=== PATIENT | male | born 1935 | race Caucasian/White ===

== ENCOUNTER 2017-06-26 12:09 | Inpatient (IN) | payer OTHER, BC ==
[2017-06-26 12:46] VITALS: BMI 32.5
--- NOTE | 2017-06-26 13:46 | PDOC ---
History of Present Illness - General History Source: Family Exam Limitations: Other - History of Present Illness Initial Comments: 06/26/17 16:08 The patient is a 81 year old male, with no significant past medical history, who presents to the emergency department with changes in mental status since this morning. As per , the patient is typically up to date with the news, and is alert and oriented to person, place, and time at baseline. However, reports the patient was unable to recognize in the household or who the president was since this morning. denies patient has had any recent head trauma, headache, LOC, changes in vision, dizziness, or lightheadedness. has not noted any recent fever or cough. Patient's history is limited due to clinical condition. Allergies: NKDA Past Surgical History: None reported. Social History: Non smoker. No ETOH or recreational drug use. PCP: Dr. Graf <Nataly Liu - Last Filed: 06/26/17 17:59> <Ibeth Anthony - Last Filed: 06/28/17 12:11> - General Chief Complaint: Altered Mental Status Stated Complaint: ALTERED MENTAL STATUS Time Seen by Provider: 06/26/17 12:29 Past History <Nataly Liu - Last Filed: 06/26/17 17:59> - Past Medical History COPD: No Other medical history: Hx bloods clot in legs as per - Suicide/Smoking/Psychosocial Hx Smoking History: Never smoked Have you smoked in the past 12 months: No Information on smoking cessation initiated: No Hx Alcohol Use: No Drug/Substance Use Hx: No Substance Use Type: None <Ibeth Anthony - Last Filed: 06/28/17 12:11> - Past Medical History Allergies/Adverse Reactions: Allergies Allergy/AdvReac Type Severity Reaction Status Date / Time No Known Allergies Allergy Verified 06/26/17 14:42 Home Medications: Ambulatory Orders NK [No Known Home Medication] 06/26/17 Review of Systems - Review of Systems Able to Perform ROS?: Yes Comments:: 06/26/17 17:31 GENERAL/CONSTITUTIONAL: No fever or chills. No weakness. HEAD, EYES, EARS, NOSE AND THROAT: No change in vision. No ear pain or discharge. No sore throat. CARDIOVASCULAR: No chest pain or shortness of breath. RESPIRATORY: No cough, wheezing, or hemoptysis. GASTROINTESTINAL: No nausea, vomiting, diarrhea or constipation. GENITOURINARY: No dysuria, frequency, or change in urination. MUSCULOSKELETAL: No joint or muscle swelling or pain. No neck or back pain. SKIN: No rash NEUROLOGIC: Yes altered mental status. No headache, vertigo, loss of consciousness, or change in strength/sensation. ENDOCRINE: No increased thirst. No abnormal weight change. HEMATOLOGIC/LYMPHATIC: No anemia, easy bleeding, or history of blood clots. ALLERGIC/IMMUNOLOGIC: No hives or skin allergy. <Nataly Liu - Last Filed: 06/26/17 17:59> *Physical Exam - Vital Signs Last Vital Signs Temp Pulse Resp BP Pulse Ox 100.3 F H 90 18 150/90 98 06/26/17 14:51 06/26/17 14:51 06/26/17 14:51 06/26/17 14:51 06/26/17 14:51 - Physical Exam Comments: 06/26/17 17:33 GENERAL: Awake, confused, febrile, in no acute distress HEAD: No signs of trauma EYES: PERRLA, EOMI, sclera anicteric, conjunctiva clear ENT: Auricles normal inspection, hearing grossly normal, nares patent, oropharynx clear without exudates. Moist mucosa NECK: Normal ROM, supple, no lymphadenopathy, JVD, or masses LUNGS: Breath sounds equal, clear to auscultation bilaterally. No wheezes, and no crackles HEART: Regular rate and rhythm, normal S1 and S2, no murmurs, rubs or gallops ABDOMEN: Soft, nontender, normoactive bowel sounds. No guarding, no rebound. No masses EXTREMITIES: Normal range of motion, no edema. No clubbing or cyanosis. No cords, erythema, or tenderness NEUROLOGICAL: Cranial nerves II through XII grossly intact. SKIN: Warm, Dry, normal turgor, no rashes or lesions noted. <NoeEmelynlidia - Last Filed: 06/26/17 17:59> - Vital Signs Last Vital Signs Temp Pulse Resp BP Pulse Ox 98.6 F 63 15 153/96 96 06/26/17 12:15 06/26/17 12:15 06/26/17 12:15 06/26/17 12:15 06/26/17 12:15 <Ibeth Anthony - Last Filed: 06/28/17 12:11> Procedures - Lumbar Puncture Indication: Meningitis, AMS CT Scan: Yes Betadine Prep: Yes Position: Right lateral decubitus Site: L4-L51 Local Anesthesia: 1% Lidocaine with epi Volume(ml): 2 Lumbar Puncture Kit: Adult Needle Size(gauge): 20 Traumatic Tap: No Tubes Obtained: 4 Clear Fluid: Yes Complications: No <Ibeth Anthony - Last Filed: 06/28/17 12:11> ED Treatment Course - LABORATORY CBC & Chemistry Diagram: 06/26/17 15:35 06/26/17 16:03 - ADDITIONAL ORDERS Additional order review: Laboratory Results 06/26/17 12:34 POC Glucometer [id number] 06/26/17 06/26/17 15:35 12:34 RBC 4.39 MCV 88.4 MCHC 34.2 RDW 14.6 MPV 8.4 Neutrophils % 86.4 H Lymphocytes % 6.2 L Monocytes % 7.3 Eosinophils % 0.0 Basophils % 0.1 POC Glucometer [id number] - RADIOLOGY Radiograph Interpretation: 06/26/17 16:11 EXAM: Head CT INTERPRETED BY: Dr. Wiseman REVIEWED BY: Dr. Anthony IMPRESSION: No intracranial hemorrhage is seen. There is no discrete infarct within the limitations of CT. Mild to moderate periventricular white matter microvascular ischemic gliosis is noted. There is no definite extra-axial fluid collection. Involutional changes are seen with mild ventricular dilatation. A 0.5 cm calcification is noted along the right frontal convexity probably representing a calcified meningioma. No calvarial defect is seen. SUMMARY: No CT evidence of acute intracranial pathology. Mild to moderate periventricular chronic microvascular ischemic changes. EXAM: CXR INTERPRETED BY: Dr. Walsh REVIEWED BY: Dr. Anthony IMPRESSION: Cardiomegaly, no acute disease. <Nataly Liu - Last Filed: 06/26/17 17:59> - LABORATORY CBC & Chemistry Diagram: 06/28/17 05:55 06/28/17 05:55 - ADDITIONAL ORDERS Additional order review: Laboratory Results 06/26/17 12:34 POC Glucometer [id number] 06/26/17 12:34 POC Glucometer [id number] <Ibeth Anthony - Last Filed: 06/28/17 12:11> Medical Decision Making - Medical Decision Making 06/26/17 19:06 Called by hospitalist. Per our initial discussion plan was to not obtain LP as no meningitic signs, plus he had +CK and elevated trop. However, we discussed again and they requested LP. I will obtain consent from , as patient is altered, unable. 06/26/17 19:57 CSF successfully obtained. Patient tolerated procedure well. Labs pending. <Ibeth Anthony - Last Filed: 06/28/17 12:11> *DC/Admit/Observation/Transfer - Attestations Scribe Attestion: 06/26/17 16:12 Documentation prepared by Nataly Liu, acting as medical assembly for Ibeth Anthony MD. <Nataly Liu - Last Filed: 06/26/17 17:59> - Discharge Dispostion Admit: Yes <Ibeth Anthony - Last Filed: 06/28/17 12:11> Diagnosis at time of Disposition: Altered mental status Qualifiers: Altered mental status type: delirium Qualified Code(s): R41.0 - Disorientation , unspecified Fever Qualifiers: Fever type: unspecified Qualified Code(s): R50.9 - Fever, unspecified Rhabdomyolysis Qualifiers: Rhabdomyolysis type: non-traumatic Qualified Code(s): M62.82 - Rhabdomyolysis - Discharge Dispostion Condition at time of disposition: Stable
--- NOTE | 2017-06-26 15:46 | EKG ---
Test Reason : Blood Pressure : / mmHG Vent. Rate : 092 BPM Atrial Rate : 092 BPM P-R Int : 252 ms QRS Dur : 150 ms QT Int : 374 ms P-R-T Axes : 050 -81 -04 degrees QTc Int : 462 ms SINUS RHYTHM WITH 1ST DEGREE A-V BLOCK LEFT AXIS DEVIATION RIGHT BUNDLE BRANCH BLOCK ABNORMAL ECG NO PREVIOUS ECGS AVAILABLE Confirmed by KAYLAN GARCIA MD ([id number]) on 06/26/2017 3:45:41 PM Referred By: Confirmed By:KAYLAN GARCIA MD
[2017-06-26 16:00] LABS: BASO % 0.1 % (0-2.0); HEMATOCRIT 38.8 % (35.4-49); HEMOGLOBIN 13.2 GM/dL (11.7-16.9); LYMPH % 6.2 % (8-40); MCH 30.2 pg (25.7-33.7); MCHC 34.2 g/dl (32.0-35.9); MEAN CELL VOLUME 88.4 fl (80-96); MEAN PLT VOLUME 8.4 fl (7.5-11.1); MONO % 7.3 % (3.8-10.2); NEUT % 86.4 % (42.8-82.8); PLATELET COUNT 149 K/MM3 (134-434); RBC 4.39 M/mm3 (4.00-5.60); RDW 14.6 % (11.9-15.9); WHITE BLOOD COUNT 8.1 K/mm3 (4.0-10.0)
[2017-06-26 16:32] LABS: URINE APPEARANCE CLEAR; URINE BILIRUBIN NEGATIVE (NEGATIVE); URINE BLOOD 3+ (NEGATIVE); URINE COLOR YELLOW; URINE GLUCOSE (UA) 1+ (NEGATIVE); URINE KETONE NEGATIVE (NEGATIVE); URINE LEUK ESTERASE NEGATIVE (NEGATIVE); URINE NITRITE NEGATIVE (NEGATIVE); URINE UROBILINOGEN NEGATIVE mg/dL (0.2-1.0)
[2017-06-26] MEDS ORDERED: HEMOQUE TEST 1 EACH EACH ONE (16:37)
[2017-06-26] MEDS ORDERED: ACETAMINOPHEN 325 MG TABLET (FP) ONE (16:38)
[2017-06-26 16:41] LABS: URINE PROTEIN 3+ (NEGATIVE)
[2017-06-26] MEDS ORDERED: ACETAMINOPHEN 325 MG TABLET (FP) PO ONE (16:43)
[2017-06-26 16:44] LABS: EPI CELLS RARE /HPF (FEW); URINE MUCUS RARE
[2017-06-26 16:46] LABS: ALBUMIN 3.7 g/dl (3.4-5.0); ANION GAP 9 (8-16); BILIRUBIN,TOTAL 0.9 mg/dL (0.2-1.0); BLOOD UREA NITROGEN 22 mg/dL (7-18); CALCIUM 9.8 mg/dL (8.5-10.1); CHLORIDE 105 mmol/L (98-107); CO2 26 mmol/L (21-32); CREATININE 1.4 mg/dL (0.7-1.3); GLUCOSE,RANDOM 146 mg/dL (74-106); POTASSIUM 3.9 mmol/L (3.5-5.1); SGOT/AST 78 U/L (15-37); SGPT/ALT 29 U/L (12-78); SODIUM 140 mmol/L (136-145); TOT PROT 6.9 g/dl (6.4-8.2)
[2017-06-26 16:58] LABS: ALK PHOS 72 U/L (45-117)
[2017-06-26] MEDS ORDERED: SODIUM CHLORIDE 1,000 ML IV STA (17:36)
[2017-06-26] MEDS ORDERED: SODIUM CHLORIDE 1,000 ML IV SCH (17:45)
--- NOTE | 2017-06-26 18:17 | HP ---
CHIEF COMPLAINT: AMS PCP: Dr. Graf HISTORY OF PRESENT ILLNESS: This is a 81 year old male with no significant PMHx who presented to the ED with altered mental status. The patient's reports that over the past few months the patient has had a change in his speech and some forgetfulness which the attributed to old age. She states that yesterday she noticed her would stare off when she was speaking to him, wouldn't respond, and when he did, he had unintelligable speech. The does report that the patient speaks 5 languages. The patient denies any pain, however is not able to answer any questions meaningfully, with uncomprehensive speech. ER course was notable for: (1) Tmax 101.3, pulse 63, BP 153/96, resp 15, O2 96% on RA (2) Cr 1.4 (3) CPK 3627 (4) Trop 0.18 Recent Travel: denies PAST MEDICAL HISTORY: denies PAST SURGICAL HISTORY: denies Social History: Smoking: denies Alcohol: denies Drugs: denies Family History: Allergies No Known Allergies Allergy (Verified 06/26/17 14:42) HOME MEDICATIONS: Home Medications Medication Instructions Recorded NK [No Known Home Medication] 06/26/17 REVIEW OF SYSTEMS: Obtained from CONSTITUTIONAL: Fever in the ED Absent: diaphoresis, generalized weakness, loss of appetite, weight change HEENT: Absent: rhinorrhea, nasal congestion, throat swelling, difficulty swallowing CARDIOVASCULAR: Absent: chest pain, syncope, irregular heart rate, peripheral edema RESPIRATORY: Absent: cough, shortness of breath, dyspnea with exertion, orthopnea, wheezing, stridor, hemoptysis GASTROINTESTINAL:Absent: abdominal distension, vomiting, diarrhea, constipation , melena, hematochezia GENITOURINARY: Absent: frequency, hematuria MUSCULOSKELETAL: Absent: joint swelling SKIN: Absent: rash, itching, pallor HEMATOLOGIC/IMMUNOLOGIC: Absent: easy bleeding, easy bruising, lymphadenopathy, frequent infections ENDOCRINE:Absent: unexplained weight gain, unexplained weight loss NEUROLOGIC: Altered mental status as above Absent: focal weakness or paresthesias, seizure, bladder or bowel incontinence PHYSICAL EXAMINATION Vital Signs - 24 hr 06/26/17 06/26/17 06/26/17 12:15 14:51 16:42 Temperature 98.6 F 100.3 F H 101.3 F H Pulse Rate 63 Pulse Rate [ 90 Apical] Respiratory 15 18 Rate Blood Pressure 153/96 Blood Pressure 150/90 [Left Arm] O2 Sat by Pulse 96 98 Oximetry (%) GENERAL: Awake, alert, unintelligible speech HEAD: Normal with no signs of trauma. EYES: Pupils equal, round and reactive to light, sclera anicteric, conjunctiva clear. No lid lag. EARS, NOSE, THROAT: Ears normal, nares patent, oropharynx clear without exudates. Moist mucous membranes. NECK: Normal range of motion, supple without lymphadenopathy, or masses. LUNGS: Breath sounds equal, clear to auscultation bilaterally. No wheezes, and no crackles. No accessory muscle use. HEART: Regular rate and rhythm, normal S1 and S2 ABDOMEN: Soft, nontender, not distended, normoactive bowel sounds MUSCULOSKELETAL: Normal range of motion at all joints. No bony deformities or tenderness. No CVA tenderness. UPPER EXTREMITIES: 2+ pulses, warm, well-perfused. No cyanosis. No clubbing. No peripheral edema. LOWER EXTREMITIES: 2+ pulses, warm, well-perfused. No calf tenderness. No peripheral edema. NEUROLOGICAL: Unable to assess CN, paitent not following commands. Unintelligible speech. Gait not observed SKIN: Warm, dry, normal turgor, no rashes or lesions noted, normal capillary refill. Laboratory Results - last 24 hr 06/26/17 06/26/17 06/26/17 12:34 15:35 15:35 WBC 8.1 RBC 4.39 Hgb 13.2 Hct 38.8 MCV 88.4 MCH 30.2 MCHC 34.2 RDW 14.6 Plt Count 149 MPV 8.4 Neutrophils % 86.4 H Lymphocytes % 6.2 L Monocytes % 7.3 Eosinophils % 0.0 Basophils % 0.1 Sodium Potassium Chloride Carbon Dioxide Anion Gap BUN Creatinine Creat Clearance w eGFR POC Glucometer [id number] Random Glucose Calcium Total Bilirubin AST ALT Alkaline Phosphatase Ammonia 23.09 Creatine Kinase Creatine Kinase Index CK-MB (CK-2) Troponin I Total Protein Albumin Urine Color Urine Appearance Urine pH Ur Specific [place] Urine Protein Urine Glucose (UA) Urine Ketones Urine Blood Urine Nitrite Urine Bilirubin Urine Urobilinogen Ur Leukocyte Esterase Urine WBC (Auto) Urine RBC (Auto) Ur Epithelial Cells Urine Mucus 02/28/18 02/28/18 16:03 16:03 WBC RBC Hgb Hct MCV MCH MCHC RDW Plt Count MPV Neutrophils % Lymphocytes % Monocytes % Eosinophils % Basophils % Sodium 140 Potassium 3.9 Chloride 105 Carbon Dioxide 26 Anion Gap 9 BUN 22 H Creatinine 1.4 H Creat Clearance w eGFR 48.89 POC Glucometer Random Glucose 146 H Calcium 9.8 Total Bilirubin 0.9 AST 78 H ALT 29 Alkaline Phosphatase 72 Ammonia Creatine Kinase 3627 H Creatine Kinase Index 0.1 CK-MB (CK-2) 7.378 H Troponin I 0.18 H Total Protein 6.9 Albumin 3.7 Urine Color Yellow Urine Appearance Clear Urine pH 6.0 Ur Specific [place] 1.020 Urine Protein 3+ H Urine Glucose (UA) 1+ H Urine Ketones Negative Urine Blood 3+ H Urine Nitrite Negative Urine Bilirubin Negative Urine Urobilinogen Negative Ur Leukocyte Esterase Negative Urine WBC (Auto) 1 Urine RBC (Auto) 15 Ur Epithelial Cells Rare Urine Mucus Rare Assessment: This is a 81 year old male with no significant PMHx who presented to the ED with altered mental status. Plan: 1) Acute metabolic encephalopathy - Source unknown - Infectious? - Tmax 101.3 - WBC wnl - UA negative - F/u blood cultures - Discussed with ED MD (Raj), will do LP. All labs placed - Chest X-ray with no acute disease - Per , no symptoms of influenza, denies cough - Will cover with antibiotics after LP: Acyclovir, Ampicillin, Ceftriaxone, Vancomycin - Awaiting call back from ID - Neuro? - Head CT: No CT evidence of acute intracranial pathology. Mild to moderate periventricular chronic microvascular ischemic changes - F/u brain MRI - No seizure activity per - F/u RPR, B12, folate, HIV - F/u neuro consult 2) Rhabdomyolysis - Trend CPK - Continue IV fluids - NS @100cc/hr 3) Elevated troponins - Continuous cardiac monitoring - EKG with sinus rhythm, 1st degree a-v block (no previous EKGs for comparison) - Discussed with cardiology, conservative management as it is unclear why he has AMS - Trend troponins - F/u cardiology consult 4) LEX - Unknown baseline Cr - Continue to trend 5) Hematuria - 3+ blood in urine - May be 2/2 rhabdo - Continue to monitor and recheck UA once rhabdo resolved 6) F/E/N: - Regular diet - Monitor electrolytes 7) Dispo: - SCDs bilaterally 8) Dispo: - Requires continued inpatient care CODE STATUS: FULL CODE Visit type - Emergency Visit Emergency Visit: Yes ED Registration Date: 06/26/17 Care time: The patient presented to the Emergency Department on the above date and was hospitalized for further evaluation of their emergent condition. - New Patient This patient is new to me today: Yes Date on this admission: 06/27/17 - Critical Care Critical Care patient: No Hospitalist Screening - Colonoscopy Questionnaire Colonoscopy Questionnaire: Colonoscopy Questionnaire - Patient: 50 - 75 years old and never had a screening colonoscopy: Unknown History of colon or rectal polyps, or CA: Unknown History of IBD, Crohn's disease or UC: Unknown History of abdominal radiation therapy as a child: Unknown - Relative: 1 with colon or rectal CA, or polyps at age 60 or younger: Unknown Colon or rectal CA diagnosed at age 45 or younger: Unknown Multiple relatives with colon or rectal CA: Unknown - Outcome: Screening Result: Negative Screen
[2017-06-26] MEDS ORDERED: ASPIRIN 81 MG CHEWABLE TABLETS PO ONE (19:00)
[2017-06-26] MEDS ORDERED: CEFTRIAXONE IN IS-OSM DEXTROSE 2 GM/50 ML BAG IVPB ONE (19:29)
[2017-06-26] MEDS ORDERED: HALOPERIDOL LACTATE 5 MG/ML IM ONE (19:31)
[2017-06-26] MEDS ORDERED: HALOPERIDOL LACTATE 5 MG/ML ONE (19:36)
[2017-06-26] MEDS ORDERED: VANCOMYCIN 1,500 MG in DEXTROSE 5%-WATER - 500 ML IVPB ONE (19:45)
[2017-06-26] MEDS ORDERED: AMPICILLIN - 2 GM in SODIUM CHLORIDE 100 ML IVPB ONE (20:00)
[2017-06-26] MEDS ORDERED: ACYCLOVIR INJECTION 1,000 MG in DEXTROSE 5%-WATER - 100 ML IVPB ONE (20:00)
[2017-06-26] MEDS ORDERED: ACYCLOVIR INJECTION 1,000 MG in DEXTROSE 5%-WATER - 250 ML IVPB ONE (20:00)
[2017-06-26] MEDS ORDERED: ASPIRIN 81 MG CHEWABLE TABLETS ONE (20:46)
[2017-06-26] MEDS ORDERED: AMPICILLIN SODIUM 2 GM VIAL ONE (20:50)
[2017-06-26 21:37] LABS: CSF APPEARANCE CLEAR; CSF COLOR COLORLESS
[2017-06-26 22:24] LABS: CSF MONOCYTES 10 %
--- NOTE | 2017-06-27 01:25 | HOSP ---
Physical Examination Vital Signs: Vital Signs Temperature 98.2 F 06/26/17 21:28 Pulse Rate 98 H 06/26/17 21:28 Respiratory Rate 19 06/26/17 21:28 Blood Pressure 186/73 06/26/17 21:28 O2 Sat by Pulse Oximetry (%) 98 06/26/17 21:28 Labs: CBC, BMP 06/26/17 15:35 06/26/17 16:03 Hospitalist Encounter Assessment: Received TC from my colleague who discussed case with neurology, Dr. Cosme. Dr. Cosme recommends transfer pt to ICU. DW ICU RING STAMPER who feels pt is not a candidate for ICU level of care at this time. Will admit to stroke tele unit when bed available. Monitor neurochecks q4h.
[2017-06-27] MEDS: SODIUM CHLORIDE 1,000 ML IV SCH ×2 (01:44→21:09)
[2017-06-27] MEDS ORDERED: ACYCLOVIR INJECTION 1,000 MG in DEXTROSE 5%-WATER - 250 ML IVPB ONE (04:30)
[2017-06-27 05:11] LABS: COCAINE, UR NEGATIVE ng/ml (CUTOFF=300); OPIATES, URI NEGATIVE ng/ml (CUTOFF=300); PHENCYCLIDINE,URINE NEGATIVE ng/ml (CUTOFF=25); URINE AMPHETAMINES NEGATIVE ng/ml (CUTOFF=500); URINE BARBITURATES NEGATIVE ng/ml (CUTOFF=200); URINE BENZODIAZEPINES NEGATIVE ng/ml (CUTOFF=200)
[2017-06-27 05:12] LABS: METHADONE, UR NEGATIVE ng/ml (CUTOFF=300)
--- NOTE | 2017-06-27 07:41 | CON.ID ---
Consult Consult Specialty:: Infectious Disease Referred by:: Primary Team Reason for Consultation:: AMS, FEVER - History of Present Illness History of Present Illness: 81 year old M with no significant pmh. Patient is altered, so history obtained from EMR. Patient has been having change in speech and forgetfulness x past few months. Patient had acute change in mental status yesterday morning, where he wouldn't respond or would respond with unintelligible speech. Patient denies any pain. Patient with temp of 101.3 in ER. - History Source History Provided By: Medical Record Limitations to Obtaining History: Poor Historian - Alcohol/Substance Use Hx Alcohol Use: No - Smoking History Smoking history: Never smoked Have you smoked in the past 12 months: No Home Medications - Allergies Allergies/Adverse Reactions: Allergies Allergy/AdvReac Type Severity Reaction Status Date / Time No Known Allergies Allergy Verified 06/26/17 14:42 - Home Medications Home Medications: Ambulatory Orders NK [No Known Home Medication] 06/26/17 Family Disease History - Family Disease History Family History: Unable to Obtain Review of Systems Unable to obtain ROS, reason: Altered Mental Status Physical Exam Vital Signs: Vital Signs Temperature 99 F 06/27/17 06:35 Pulse Rate 89 06/27/17 06:35 Respiratory Rate 19 06/27/17 06:35 Blood Pressure 158/98 06/27/17 06:35 O2 Sat by Pulse Oximetry (%) 98 06/27/17 06:35 Constitutional: Yes: No Distress, Calm, Other (Confused. Unintelligeble speech.) Eyes: Yes: Conjunctiva Clear, EOM Intact HENT: Yes: Atraumatic, Normocephalic Neck: Yes: Supple, Trachea Midline Cardiovascular: Yes: Regular Rate and Rhythm, S1, S2 Respiratory: Yes: Regular, CTA Bilaterally. No: Rales, Rhonchi Gastrointestinal: Yes: Normal Bowel Sounds, Soft, Other (Superficial excorations on left side of abdomen) Edema: No Neurological: Yes: Other (Unable to assess 2/2 to confusion. Patient unable to follow simple commands) Labs: CBC, BMP 06/26/17 15:35 06/26/17 16:03 Laboratory Tests 06/26/17 06/26/17 06/26/17 16:03 16:03 19:27 BUN 22 H Creatinine 1.4 H Creatine Kinase CK-MB (CK-2) Troponin I Vitamin B12 143 L Serum Folate 19 H TSH 0.60 Urine Protein 3+ H Urine Glucose (UA) 1+ H Urine Blood 3+ H Urine WBC (Auto) 1 Urine RBC (Auto) 15 CSF Appearance CSF Color CSF WBC CSF RBC CSF Neutrophils CSF Lymphocytes CSF Monocytes CSF Glucose CSF Total Protein CSF VDRL CSF Lyme IgG [place] CSF Lyme IgG Ab 18 kDa CSF Lyme IgG Ab 23 kDa CSF Lyme IgG Ab 28 kDa CSF Lyme IgG Ab 30 kDa CSF Lyme IgG Ab 39 kDa CSF Lyme IgG Ab 41 kDa CSF Lyme IgG Ab 45 kDa CSF Lyme IgG Ab 58 kDa CSF Lyme IgG Ab 66 kDa CSF Lyme IgG Ab 93 kDa CSF Lyme IgM [place] CSF Lyme IgM Ab 23 kDa CSF Lyme IgM Ab 39 kDa CSF Lyme IgM Ab 41 kDa CSF Lyme Disease DNA CSF Herpes II IgG Ab Opiates Screen Methadone Screen Barbiturate Screen Phencyclidine Screen Ur Amphetamines Screen MDMA (Ecstasy) Screen Benzodiazepines Screen Cocaine Screen U Marijuana (THC) Screen RPR Titer Lyme IgG Ab Interpret Lyme IgM Ab Index HSV I DNA Quant (PCR) HSV II DNA Quant (PCR) HIV 1&2 Ag/Ab, 4th Gen 06/26/17 06/26/17 06/26/17 19:27 20:00 20:00 BUN Creatinine Creatine Kinase CK-MB (CK-2) Troponin I Vitamin B12 Serum Folate TSH Urine Protein Urine Glucose (UA) Urine Blood Urine WBC (Auto) Urine RBC (Auto) CSF Appearance CSF Color CSF WBC CSF RBC CSF Neutrophils CSF Lymphocytes CSF Monocytes CSF Glucose CSF Total Protein CSF VDRL Pending CSF Lyme IgG [place] Pending CSF Lyme IgG Ab 18 kDa Pending CSF Lyme IgG Ab 23 kDa Pending CSF Lyme IgG Ab 28 kDa Pending CSF Lyme IgG Ab 30 kDa Pending CSF Lyme IgG Ab 39 kDa Pending CSF Lyme IgG Ab 41 kDa Pending CSF Lyme IgG Ab 45 kDa Pending CSF Lyme IgG Ab 58 kDa Pending CSF Lyme IgG Ab 66 kDa Pending CSF Lyme IgG Ab 93 kDa Pending CSF Lyme IgM [place] Pending CSF Lyme IgM Ab 23 kDa Pending CSF Lyme IgM Ab 39 kDa Pending CSF Lyme IgM Ab 41 kDa Pending CSF Lyme Disease DNA Pending CSF Herpes II IgG Ab Pending Opiates Screen Methadone Screen Barbiturate Screen Phencyclidine Screen Ur Amphetamines Screen MDMA (Ecstasy) Screen Benzodiazepines Screen Cocaine Screen U Marijuana (THC) Screen RPR Titer Lyme IgG Ab Interpret Pending Lyme IgM Ab Index Pending HSV I DNA Quant (PCR) HSV II DNA Quant (PCR) HIV 1&2 Ag/Ab, 4th Gen Pending 06/26/17 06/26/17 06/26/17 20:00 20:00 20:00 BUN Creatinine Creatine Kinase CK-MB (CK-2) Troponin I Vitamin B12 Serum Folate TSH Urine Protein Urine Glucose (UA) Urine Blood Urine WBC (Auto) Urine RBC (Auto) CSF Appearance Clear CSF Color Colorless CSF WBC 2 CSF RBC 2.00 CSF Neutrophils 9 CSF Lymphocytes 16 CSF Monocytes 10 CSF Glucose 81 H CSF Total Protein CSF VDRL CSF Lyme IgG [place] CSF Lyme IgG Ab 18 kDa CSF Lyme IgG Ab 23 kDa CSF Lyme IgG Ab 28 kDa CSF Lyme IgG Ab 30 kDa CSF Lyme IgG Ab 39 kDa CSF Lyme IgG Ab 41 kDa CSF Lyme IgG Ab 45 kDa CSF Lyme IgG Ab 58 kDa CSF Lyme IgG Ab 66 kDa CSF Lyme IgG Ab 93 kDa CSF Lyme IgM [place] CSF Lyme IgM Ab 23 kDa CSF Lyme IgM Ab 39 kDa CSF Lyme IgM Ab 41 kDa CSF Lyme Disease DNA CSF Herpes II IgG Ab Opiates Screen Methadone Screen Barbiturate Screen Phencyclidine Screen Ur Amphetamines Screen MDMA (Ecstasy) Screen Benzodiazepines Screen Cocaine Screen U Marijuana (THC) Screen RPR Titer Lyme IgG Ab Interpret Lyme IgM Ab Index HSV I DNA Quant (PCR) Pending HSV II DNA Quant (PCR) Pending HIV 1&2 Ag/Ab, 4th Gen 06/26/17 06/26/17 06/27/17 20:00 21:00 04:00 BUN Creatinine Creatine Kinase 5410 H CK-MB (CK-2) 3.778 H Troponin I 0.21 H Vitamin B12 Serum Folate TSH Urine Protein Urine Glucose (UA) Urine Blood Urine WBC (Auto) Urine RBC (Auto) CSF Appearance CSF Color CSF WBC CSF RBC CSF Neutrophils CSF Lymphocytes CSF Monocytes CSF Glucose CSF Total Protein 40 CSF VDRL CSF Lyme IgG [place] CSF Lyme IgG Ab 18 kDa CSF Lyme IgG Ab 23 kDa CSF Lyme IgG Ab 28 kDa CSF Lyme IgG Ab 30 kDa CSF Lyme IgG Ab 39 kDa CSF Lyme IgG Ab 41 kDa CSF Lyme IgG Ab 45 kDa CSF Lyme IgG Ab 58 kDa CSF Lyme IgG Ab 66 kDa CSF Lyme IgG Ab 93 kDa CSF Lyme IgM [place] CSF Lyme IgM Ab 23 kDa CSF Lyme IgM Ab 39 kDa CSF Lyme IgM Ab 41 kDa CSF Lyme Disease DNA CSF Herpes II IgG Ab Opiates Screen Methadone Screen Barbiturate Screen Phencyclidine Screen Ur Amphetamines Screen MDMA (Ecstasy) Screen Benzodiazepines Screen Cocaine Screen U Marijuana (THC) Screen RPR Titer Pending Lyme IgG Ab Interpret Lyme IgM Ab Index HSV I DNA Quant (PCR) HSV II DNA Quant (PCR) HIV 1&2 Ag/Ab, 4th Gen 06/27/17 04:35 BUN Creatinine Creatine Kinase CK-MB (CK-2) Troponin I Vitamin B12 Serum Folate TSH Urine Protein Urine Glucose (UA) Urine Blood Urine WBC (Auto) Urine RBC (Auto) CSF Appearance CSF Color CSF WBC CSF RBC CSF Neutrophils CSF Lymphocytes CSF Monocytes CSF Glucose CSF Total Protein CSF VDRL CSF Lyme IgG [place] CSF Lyme IgG Ab 18 kDa CSF Lyme IgG Ab 23 kDa CSF Lyme IgG Ab 28 kDa CSF Lyme IgG Ab 30 kDa CSF Lyme IgG Ab 39 kDa CSF Lyme IgG Ab 41 kDa CSF Lyme IgG Ab 45 kDa CSF Lyme IgG Ab 58 kDa CSF Lyme IgG Ab 66 kDa CSF Lyme IgG Ab 93 kDa CSF Lyme IgM [place] CSF Lyme IgM Ab 23 kDa CSF Lyme IgM Ab 39 kDa CSF Lyme IgM Ab 41 kDa CSF Lyme Disease DNA CSF Herpes II IgG Ab Opiates Screen Negative Methadone Screen Negative Barbiturate Screen Negative Phencyclidine Screen Negative Ur Amphetamines Screen Negative MDMA (Ecstasy) Screen Negative Benzodiazepines Screen Negative Cocaine Screen Negative U Marijuana (THC) Screen Negative RPR Titer Lyme IgG Ab Interpret Lyme IgM Ab Index HSV I DNA Quant (PCR) HSV II DNA Quant (PCR) HIV 1&2 Ag/Ab, 4th Gen Assessment/Plan Assessment: 1. Fever and altered mental status of unknown etiology. Unlikely bacterial meningitis. Plan: 1. Ceftriaxone 2g BID 2. Ampicillin 2g q4h 3. Acyclovir 1g q8h 4. F/u RPR, cultuers, 5. Recommend infleunza screening 6. Neurology evaluation pending 7. ESR/CRP 8. MRI Brain pending
--- NOTE | 2017-06-27 07:47 | PN ---
Teaching Attending Note Name of Resident: Sergo Thorne ATTENDING PHYSICIAN STATEMENT I saw and evaluated the patient. I reviewed the resident's note and discussed the case with the resident. I agree with the resident's findings and plan as documented. SUBJECTIVE: Admitted with altered mental status acutely associated with fever 101.3 OBJECTIVE: ASSESSMENT AND PLAN: Selected Entries 06/27/17 06:35 Temperature 99 F Pulse Rate [ 89 Apical] Respiratory 19 Rate Blood Pressure 158/98 [Left Arm] O2 Sat by Pulse 98 Oximetry (%) Lung Clear Cor S1 S2 RR Abd Soft nontender Neuro Confused no nuchal rigidity nonfocal Microbiology Laboratory Tests 06/26/17 06/26/17 06/26/17 15:35 16:03 16:03 WBC 8.1 Hgb 13.2 Plt Count 149 Neutrophils % 86.4 H Lymphocytes % 6.2 L Monocytes % 7.3 BUN 22 H Creatine Kinase Troponin I 0.18 H Vitamin B12 Serum Folate Urine WBC (Auto) 1 Urine RBC (Auto) 15 CSF Appearance CSF Color CSF WBC CSF RBC CSF Monocytes CSF Glucose CSF Total Protein RPR Titer HSV I DNA Quant (PCR) HSV II DNA Quant (PCR) HIV 1&2 Ag/Ab, 4th Gen 06/26/17 06/26/17 06/26/17 19:27 19:27 20:00 WBC Hgb Plt Count Neutrophils % Lymphocytes % Monocytes % BUN Creatine Kinase Troponin I Vitamin B12 143 L Serum Folate 19 H Urine WBC (Auto) Urine RBC (Auto) CSF Appearance CSF Color CSF WBC CSF RBC CSF Monocytes CSF Glucose CSF Total Protein RPR Titer HSV I DNA Quant (PCR) Pending HSV II DNA Quant (PCR) Pending HIV 1&2 Ag/Ab, 4th Gen Pending 06/26/17 06/26/17 06/26/17 20:00 20:00 20:00 WBC Hgb Plt Count Neutrophils % Lymphocytes % Monocytes % BUN Creatine Kinase Troponin I Vitamin B12 Serum Folate Urine WBC (Auto) Urine RBC (Auto) CSF Appearance Clear CSF Color Colorless CSF WBC 2 CSF RBC 2.00 CSF Monocytes 10 CSF Glucose 81 H CSF Total Protein 40 RPR Titer HSV I DNA Quant (PCR) HSV II DNA Quant (PCR) HIV 1&2 Ag/Ab, 4th Gen 06/26/17 06/26/17 06/27/17 21:00 21:00 04:00 WBC Hgb Plt Count Neutrophils % Lymphocytes % Monocytes % BUN Creatine Kinase 5163 H 5410 H Troponin I Vitamin B12 Serum Folate Urine WBC (Auto) Urine RBC (Auto) CSF Appearance CSF Color CSF WBC CSF RBC CSF Monocytes CSF Glucose CSF Total Protein RPR Titer Pending HSV I DNA Quant (PCR) HSV II DNA Quant (PCR) HIV 1&2 Ag/Ab, 4th Gen Assessment Fever and altered mental status CSF does not seem compatible with suppurative meningitis. Viral disease considered including HSV though again LP not impressive. Plan Cover with Ceftriaxone 2 grs q12H pending cultures Ampicillin 2 grs q 4 H Acyclovir pending HSV PCR adjusted for Cr Cl RPR Viral CSF culture Influenza screen ESR CRP MRI brain Neuro evaluation [place] Problem List - Problems (1) Altered mental status Code(s): R41.82 - ALTERED MENTAL STATUS, UNSPECIFIED Qualifiers: Altered mental status type: delirium Qualified Code(s): R41.0 - Disorientation, unspecified (2) Fever Code(s): R50.9 - FEVER, UNSPECIFIED Qualifiers: Fever type: unspecified Qualified Code(s): R50.9 - Fever, unspecified (3) Rhabdomyolysis Code(s): M62.82 - RHABDOMYOLYSIS Qualifiers: Rhabdomyolysis type: non-traumatic Qualified Code(s): M62.82 - Rhabdomyolysis
[2017-06-27 08:33] LABS: BASO % 0.1 % (0-2.0); HEMATOCRIT 37.1 % (35.4-49); HEMOGLOBIN 12.6 GM/dL (11.7-16.9); LYMPH % 9.4 % (8-40); MCH 29.9 pg (25.7-33.7); MCHC 33.9 g/dl (32.0-35.9); MEAN CELL VOLUME 88.3 fl (80-96); MEAN PLT VOLUME 7.9 fl (7.5-11.1); MONO % 9.8 % (3.8-10.2); NEUT % 80.7 % (42.8-82.8); PLATELET COUNT 134 K/MM3 (134-434); RDW 14.7 % (11.9-15.9); WHITE BLOOD COUNT 8.9 K/mm3 (4.0-10.0)
[2017-06-27] MEDS ORDERED: AMPICILLIN SODIUM 2 GM VIAL ONE (09:06)
[2017-06-27 09:07] LABS: ALBUMIN 3.4 g/dl (3.4-5.0); ANION GAP 10 (8-16); CALCIUM 9.9 mg/dL (8.5-10.1); CHLORIDE 103 mmol/L (98-107); CO2 26 mmol/L (21-32); MAGNESIUM 1.7 mg/dL (1.8-2.4); POTASSIUM 4.1 mmol/L (3.5-5.1); SODIUM 139 mmol/L (136-145)
[2017-06-27 09:14] LABS: ALK PHOS 61 U/L (45-117); BILIRUBIN,TOTAL 0.7 mg/dL (0.2-1.0); BLOOD UREA NITROGEN 25 mg/dL (7-18); CHOLESTEROL 159 mg/dL (50-200); CREATININE 1.3 mg/dL (0.7-1.3); GLUCOSE,RANDOM 134 mg/dL (74-106); PHOSPHOROUS 2.5 mg/dL (2.5-4.9); SGOT/AST 132 U/L (15-37); SGPT/ALT 39 U/L (12-78); TOT PROT 6.3 g/dl (6.4-8.2); TRIGLYCERIDES 141 mg/dL (35-160)
[2017-06-27] MEDS: AMPICILLIN - 2 GM in SODIUM CHLORIDE 100 ML IVPB SCH ×4 (09:14→21:10)
[2017-06-27 09:16] LABS: HDL CHOLESTEROL 32 mg/dL (40-60)
[2017-06-27 09:17] LABS: LDL CHOLESTEROL (ONLY SJRH) 99 mg/dL (5-100)
[2017-06-27] MEDS ORDERED: ACYCLOVIR INJECTION 1,000 MG in DEXTROSE 5%-WATER - 100 ML IVPB SCH (10:00)
[2017-06-27] MEDS: ACYCLOVIR INJECTION 1,000 MG in DEXTROSE 5%-WATER - 250 ML IVPB SCH ×2 (10:05→22:30)
[2017-06-27] MEDS: CEFTRIAXONE IN IS-OSM DEXTROSE 2 GM/50 ML BAG IVPB SCH ×2 (11:00→22:30)
[2017-06-27] MEDS ORDERED: MAGNESIUM 1GM/D5W 100ML - 100 ML IVPB IVPB ONE (11:03)
--- NOTE | 2017-06-27 11:11 | PN ---
Progress Note, Physician Chief Complaint: seen in ER sleeping when aroused he responds but not making sense,babbling, muttering yesterday temp 101.3 - Current Medication List Current Medications: Active Medications Sodium Chloride (Normal Saline -) 1,000 mls @ 100 mls/hr IV ASDIR [facility] Last Admin: 06/27/17 01:44 Dose: 100 mls/hr Ampicillin Sodium 2 gm/ Sodium (Chloride) 100 mls @ 200 mls/hr IVPB Q4H [facility] Last Admin: 06/27/17 09:14 Dose: 200 mls/hr CEFTRIAXONE IN IS-OSM DEXTROSE (Ceftriaxone 2 Gm-D5w Bag) 2 gm in 50 mls @ 100 mls/hr IVPB BID PATTIE Acyclovir 1,000 mg/ Dextrose 270 mls @ 270 mls/hr IVPB BID PATTIE Magnesium Sulfate (Magnesium Sulfate) 1 gm IVPB ONCE ONE Stop: 06/27/17 11:04 - Objective Vital Signs: Vital Signs Temperature 98.9 F 06/27/17 09:15 Pulse Rate 88 06/27/17 09:15 Respiratory Rate 18 06/27/17 09:15 Blood Pressure 171/96 06/27/17 09:15 O2 Sat by Pulse Oximetry (%) 98 06/27/17 09:15 Constitutional: Yes: Calm, Other (confused) Neck: Yes: Trachea Midline Cardiovascular: Yes: Regular Rate and Rhythm, S1, S2 Respiratory: Yes: CTA Bilaterally Gastrointestinal: Yes: Normal Bowel Sounds, Soft Edema: No Neurological: Yes: Confusion, Other (not following commands mumbling not making sense) Labs: CBC, BMP 06/27/17 08:15 06/27/17 08:15 Problem List - Problems (1) Altered mental status Assessment/Plan: neurology eval pending neurochecks iv abx per ID Lumbar puncture done results note MRI of brain unclear eitology awaiting cultures broad abx coverage scd for dvt ppx Code(s): R41.82 - ALTERED MENTAL STATUS, UNSPECIFIED Qualifiers: Altered mental status type: delirium Qualified Code(s): R41.0 - Disorientation, unspecified (2) Fever Assessment/Plan: cultures pending braod coverage for bacterial /viral Code(s): R50.9 - FEVER, UNSPECIFIED Qualifiers: Fever type: unspecified Qualified Code(s): R50.9 - Fever, unspecified (3) Rhabdomyolysis Code(s): M62.82 - RHABDOMYOLYSIS Qualifiers: Rhabdomyolysis type: non-traumatic Qualified Code(s): M62.82 - Rhabdomyolysis
--- NOTE | 2017-06-27 12:21 | CONSULT ---
Consult - text type - Consultation Consultation Note: NEUROLOGY CONSULTATION is greatly appreciated: Events reviewed and discussed with Yaz Neal last night and Dr. Silverman this morning. This 81 yo (RH ?) with no significant PMH awoke yesterday AM with confusion and unable to "recognize" family members. In ER Pt was found to be awake but not able to follow commands. Elevated BP's noted. CT of head (reviewed): Mild, diffuse atrophy. Calcification of intracranial arteries. Temps to 101.3. LP performed: CSF WBC= 2; Protein= 40 mg%: Glu= 81 mg%. This AM (9:00): Pt opens eyes to name. Neck supple. Cor: Reg. No bruits. No external head trauma. Follows no commands. Sparse gibberish speech. Left conjugate gaze preference but Full EOM's. Attends poorly to Right. Right drift. Right leg rests everted. Moves L >> R Symmetrical reflexes but clear Right Babinski. Withdraws L>R. IMP: Acute left cerebral dysfunction with Aphasia and Mild Right hemiparesis. Most c/w Left CVA. 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 SUGGEST: NPO for now. MRI and MR Angio (Brain and great cervical vessels) today. ICU or telemetry med. Cardiology (R/O cardiogenic embolism) Maintain BP in 120-140/70-80 range. Speech and swallowing eval. Thank you very much, Gume Cosme MD
--- NOTE | 2017-06-27 13:05 | EKG ---
Test Reason : Blood Pressure : / mmHG Vent. Rate : 097 BPM Atrial Rate : 097 BPM P-R Int : 222 ms QRS Dur : 146 ms QT Int : 366 ms P-R-T Axes : 016 248 -15 degrees QTc Int : 464 ms SINUS RHYTHM WITH 1ST DEGREE A-V BLOCK WITH PREMATURE ATRIAL COMPLEXES RIGHT BUNDLE BRANCH BLOCK ABNORMAL ECG WHEN COMPARED WITH ECG OF 26-JUN-2017 12:58, PREMATURE ATRIAL COMPLEXES ARE NOW PRESENT Confirmed by ERMELINDA MENDOZA MD ([id number]) on 06/27/2017 1:05:26 PM Referred By: Confirmed By:ERMELINDA MENDOZA MD
--- NOTE | 2017-06-27 15:58 | PN ---
Progress Note (short form) - Note Progress Note: informed about temperature cooling blanket blood cultures tylenol IV NPO pulm evaluated- respiratory status Problem List - Problems (1) Altered mental status Code(s): R41.82 - ALTERED MENTAL STATUS, UNSPECIFIED Qualifiers: Altered mental status type: delirium Qualified Code(s): R41.0 - Disorientation, unspecified (2) Fever Code(s): R50.9 - FEVER, UNSPECIFIED Qualifiers: Fever type: unspecified Qualified Code(s): R50.9 - Fever, unspecified (3) Rhabdomyolysis Code(s): M62.82 - RHABDOMYOLYSIS Qualifiers: Rhabdomyolysis type: non-traumatic Qualified Code(s): M62.82 - Rhabdomyolysis
--- NOTE | 2017-06-27 17:36 | CON.CARD ---
Consult Consult Specialty:: Cardiology Reason for Consultation:: Positive troponin - History of Present Illness Chief Complaint: Fevers. Change is mental status History of Present Illness: This is a 81 year old male with no significant PMH. He presents to the ER with a change in mental status and was noted to have fevers. Evaluated by Neurology CT of head (reviewed): Mild, diffuse atrophy. Calcification of intracranial arteries. Temps to 101.3. LP performed: CSF WBC= 2; Protein= 40 mg%: Glu= 81 mg%. EKG - 06/27/17 NSR at 97 BPM with 1st degree AVB, RBBB, LAD, and NSSTTW changes. CXR - Cardiomegally Echocardiogram - 06/27/17 EF 69%. Normal LV size and function. Trace TR. CPK 4859 Troponin 0.23, 0.29 - Alcohol/Substance Use Hx Alcohol Use: No - Smoking History Smoking history: Never smoked Have you smoked in the past 12 months: No Home Medications - Allergies Allergies/Adverse Reactions: Allergies Allergy/AdvReac Type Severity Reaction Status Date / Time No Known Allergies Allergy Verified 06/26/17 14:42 - Home Medications Home Medications: Ambulatory Orders NK [No Known Home Medication] 06/26/17 Review of Systems Findings/Remarks: As per HPI Vital Signs: Vital Signs Temperature 103.8 F H 06/27/17 15:32 Pulse Rate 28 L 06/27/17 15:32 Respiratory Rate 28 H 06/27/17 15:32 Blood Pressure 196/114 06/27/17 15:32 O2 Sat by Pulse Oximetry (%) 98 06/27/17 09:15 Constitutional: Yes: Other (Agitated and shivering Not following commands) HENT: Yes: WNL Neck: Yes: WNL Respiratory: Yes: CTA Bilaterally Gastrointestinal: Yes: Soft Cardiovascular: Yes: Regular Rate and Rhythm (NL S1S2, no MRHG) Extremities: Yes: WNL Edema: No Neurological: Yes: Confusion (Agitated and shivering), Other - Other Data Labs, Other Data: CBC, BMP 06/27/17 08:15 06/27/17 08:15 Troponin, BNP 06/26/17 06/27/17 06/27/17 21:00 04:00 11:30 Troponin I 0.23 H 0.21 H 0.29 H D Troponin, BNP 06/26/17 06/27/17 06/27/17 21:00 04:00 11:30 Troponin I 0.23 H 0.21 H 0.29 H D Assessment/Plan Cardiovascular: EKG - 06/27/17 NSR at 97 BPM with 1st degree AVB, RBBB, LAD, and NSSTTW changes. CXR - Cardiomegally Echocardiogram - 06/27/17 EF 69%. Normal LV size and function. Trace TR. CPK 4859 Troponin 0.23, 0.29 The positive troponin levels likely represent demand ischemia and not an acute coronary syndrome. BP's are significantly elevated, especially with the fever spikes. If BP's remain elevated, would consider adding metoprolol tartrate 25 mg Q12h and can uptirate from there. Will follow with you.
[2017-06-27 17:52] LABS: HEMATOCRIT 39.1 % (35.4-49); HEMOGLOBIN 13.4 GM/dL (11.7-16.9); MCHC 34.2 g/dl (32.0-35.9); MEAN CELL VOLUME 87.7 fl (80-96); MEAN PLT VOLUME 8.6 fl (7.5-11.1); PLATELET COUNT 139 K/MM3 (134-434); RBC 4.45 M/mm3 (4.00-5.60); RDW 15.1 % (11.9-15.9); WHITE BLOOD COUNT 9.1 K/mm3 (4.0-10.0)
[2017-06-27 18:26] LABS: PLATELET ESTIMATE DECREASED
[2017-06-27 18:33] LABS: ANION GAP 11 (8-16); BLOOD UREA NITROGEN 21 mg/dL (7-18); CALCIUM 8.9 mg/dL (8.5-10.1); CHLORIDE 101 mmol/L (98-107); CO2 25 mmol/L (21-32); CREATININE 1.2 mg/dL (0.7-1.3); GLUCOSE,RANDOM 129 mg/dL (74-106); POTASSIUM 3.3 mmol/L (3.5-5.1); SODIUM 137 mmol/L (136-145)
[2017-06-28] MEDS: AMPICILLIN - 2 GM in SODIUM CHLORIDE 100 ML IVPB SCH ×6 (00:41→21:47)
[2017-06-28 06:19] LABS: BASO % 0.4 % (0-2.0); HEMATOCRIT 39.5 % (35.4-49); HEMOGLOBIN 13.6 GM/dL (11.7-16.9); LYMPH % 5.1 % (8-40); MCH 30.4 pg (25.7-33.7); MCHC 34.4 g/dl (32.0-35.9); MEAN CELL VOLUME 88.2 fl (80-96); MEAN PLT VOLUME 8.9 fl (7.5-11.1); MONO % 13.5 % (3.8-10.2); PLATELET COUNT 119 K/MM3 (134-434); RBC 4.47 M/mm3 (4.00-5.60); RDW 14.7 % (11.9-15.9); WHITE BLOOD COUNT 8.9 K/mm3 (4.0-10.0)
[2017-06-28] MEDS: ACETAMINOPHEN 1000 MG/100 ML VIAL (NON FORMULARY) IVPB PRN ×2 (06:19→11:15)
[2017-06-28 06:32] LABS: ALBUMIN 3.3 g/dl (3.4-5.0); ALK PHOS 52 U/L (45-117); ANION GAP 11 (8-16); BILIRUBIN,TOTAL 0.7 mg/dL (0.2-1.0); BLOOD UREA NITROGEN 22 mg/dL (7-18); CALCIUM 8.7 mg/dL (8.5-10.1); CHLORIDE 104 mmol/L (98-107); CO2 25 mmol/L (21-32); GLUCOSE,RANDOM 110 mg/dL (74-106); MAGNESIUM 1.9 mg/dL (1.8-2.4); SGOT/AST 125 U/L (15-37); SGPT/ALT 48 U/L (12-78); SODIUM 140 mmol/L (136-145); TOT PROT 6.2 g/dl (6.4-8.2)
--- NOTE | 2017-06-28 07:31 | PN ---
Teaching Attending Note Name of Resident: Sergo Thorne ATTENDING PHYSICIAN STATEMENT I saw and evaluated the patient. I reviewed the resident's note and discussed the case with the resident. I agree with the resident's findings and plan as documented. SUBJECTIVE:Appreciated findings per neurology. Clearly has features a stroke including right hemiparesis and aphasia. However he also has fever to 103 and this likely tied to his [employer] findings. Thus far blood cultures no growth and an ECHO shows no no vegetations. Currently confused aphasic hemiparetic. OBJECTIVE: ASSESSMENT AND PLAN: Selected Entries 06/27/17 06/27/17 06/28/17 17:17 22:00 06:00 Temperature 103.8 F H 103.0 F H 100.4 F H Pulse Rate 92 H Respiratory 28 H Rate Blood Pressure 149/93 Assessment Consideration of stroke in association with Herpes infection Vasculitis ( granulomatous) usually HVZ Have to consider he one disease process not 2. Look for pulmonary involvement CSF could be normal early on Plan Repeat chest xray Send Herpes Zoster and Mycoplasma PCR on CSF if possible Adjust antibiotic or stop once cultures final MRI critical here hopefully today ( MRA) [place] Problem List - Problems (1) Altered mental status Code(s): R41.82 - ALTERED MENTAL STATUS, UNSPECIFIED Qualifiers: Altered mental status type: delirium Qualified Code(s): R41.0 - Disorientation, unspecified (2) Fever Code(s): R50.9 - FEVER, UNSPECIFIED Qualifiers: Fever type: unspecified Qualified Code(s): R50.9 - Fever, unspecified (3) Rhabdomyolysis Code(s): M62.82 - RHABDOMYOLYSIS Qualifiers: Rhabdomyolysis type: non-traumatic Qualified Code(s): M62.82 - Rhabdomyolysis
--- NOTE | 2017-06-28 07:42 | PN ---
Progress Note, Physician History of Present Illness: Patient is confused and aphasic this morning. Patient still spiking fevers overnight. Patient unable to provide ROS - Current Medication List Current Medications: Active Medications Acetaminophen (Ofirmev Injection -) 1,000 mg IVPB Q6H PRN PRN Reason: FEVER Last Admin: 06/28/17 06:19 Dose: 1,000 mg Sodium Chloride (Normal Saline -) 1,000 mls @ 100 mls/hr IV ASDIR [facility] Last Admin: 06/27/17 21:09 Dose: Not Given Ampicillin Sodium 2 gm/ Sodium (Chloride) 100 mls @ 200 mls/hr IVPB Q4H [facility] Last Admin: 06/28/17 04:15 Dose: 200 mls/hr CEFTRIAXONE IN IS-OSM DEXTROSE (Ceftriaxone 2 Gm-D5w Bag) 2 gm in 50 mls @ 100 mls/hr IVPB BID [facility] Last Admin: 06/27/17 22:30 Dose: 100 mls/hr Acyclovir 1,000 mg/ Dextrose 270 mls @ 270 mls/hr IVPB BID [facility] Last Admin: 06/27/17 22:30 Dose: 270 mls/hr - Objective Vital Signs: Vital Signs Temperature 100.4 F H 06/28/17 06:00 Pulse Rate 92 H 06/28/17 06:00 Respiratory Rate 28 H 06/28/17 06:00 Blood Pressure 149/93 06/28/17 06:00 O2 Sat by Pulse Oximetry (%) 98 06/27/17 21:00 Constitutional: Yes: No Distress, Calm, Other (Confused. Unintelligeble speech. Aphasic) Eyes: Yes: Conjunctiva Clear, EOM Intact HENT: Yes: Atraumatic, Normocephalic Neck: Yes: Supple, Trachea Midline Cardiovascular: Yes: Regular Rate and Rhythm, S1, S2 Respiratory: Yes: Regular, CTA Bilaterally. No: Rales, Rhonchi Gastrointestinal: Yes: Normal Bowel Sounds, Soft, Other (Superficial excorations on left side of abdomen) Edema: No Neurological: Yes: Other (Right sided hemiparesis. Left sided strength 5/5. Patient unable to follow simple commands) Labs: CBC, BMP 06/28/17 05:55 06/28/17 05:55 Assessment/Plan Assessment: 1. Fever and altered mental status of unknown etiology. Unlikely bacterial meningitis. 2. Possible Acute Left sided CVA Plan: - Continue Ceftriaxone 2g BID, Ampicillin 2g q4h, can adjust or stop once cultures finalize - Acyclovir 1g q8h - F/u RPR, cultuers, influenza screen - MRI brain pending - Will attempt to send varicella, mycoplasma PCR on CSF - Will send legionella ag in urine - Will send Mycoplasma IgM, IgG Critical Care time spent: 45 minutes
--- NOTE | 2017-06-28 10:04 | PN ---
Progress Note, Physician Chief Complaint: patient confused and trying to get out of bed mumbling not making any sense - Current Medication List Current Medications: Active Medications Acetaminophen (Ofirmev Injection -) 1,000 mg IVPB Q6H PRN PRN Reason: FEVER Last Admin: 06/28/17 06:19 Dose: 1,000 mg Sodium Chloride (Normal Saline -) 1,000 mls @ 100 mls/hr IV ASDIR [facility] Last Admin: 06/27/17 21:09 Dose: Not Given Ampicillin Sodium 2 gm/ Sodium (Chloride) 100 mls @ 200 mls/hr IVPB Q4H [facility] Last Admin: 06/28/17 04:15 Dose: 200 mls/hr CEFTRIAXONE IN IS-OSM DEXTROSE (Ceftriaxone 2 Gm-D5w Bag) 2 gm in 50 mls @ 100 mls/hr IVPB BID [facility] Last Admin: 06/27/17 22:30 Dose: 100 mls/hr Acyclovir 1,000 mg/ Dextrose 270 mls @ 270 mls/hr IVPB BID [facility] Last Admin: 06/27/17 22:30 Dose: 270 mls/hr - Objective Vital Signs: Vital Signs Temperature 100.4 F H 06/28/17 06:00 Pulse Rate 92 H 06/28/17 06:00 Respiratory Rate 28 H 06/28/17 06:00 Blood Pressure 149/93 06/28/17 06:00 O2 Sat by Pulse Oximetry (%) 98 06/27/17 21:00 Constitutional: Yes: Other (confused) Neck: Yes: Trachea Midline Cardiovascular: Yes: Regular Rate and Rhythm, S1, S2 Respiratory: Yes: CTA Bilaterally, Diminished (at the bases) Gastrointestinal: Yes: Normal Bowel Sounds, Soft Edema: No Neurological: Yes: Confusion, Other (not following comands giberish speech moving left side more than right side) Labs: CBC, BMP 06/28/17 05:55 06/28/17 05:55 Problem List - Problems (1) Altered mental status Assessment/Plan: neurology eval noted r/o CVA ? viral HSV neurochecks iv abx per ID Lumbar puncture done results note MRI of brain, MRA - pending unclear eitology awaiting cultures broad abx coverage scd for dvt ppx Code(s): R41.82 - ALTERED MENTAL STATUS, UNSPECIFIED Qualifiers: Altered mental status type: delirium Qualified Code(s): R41.0 - Disorientation, unspecified (2) Fever Assessment/Plan: cultures pending braod coverage for bacterial /viral Microbiology 06/27/17 16:30 Nasopharyngeal Swab - Final 06/27/17 16:30 Nasopharyngeal Swab Influenza Types A,B Antigen (JÚNIOR) - Preliminary 06/26/17 18:12 Blood - Peripheral Venous Blood Culture - Preliminary NO GROWTH OBTAINED AFTER 24 HOURS, INCUBATION TO CONTINUE FOR 4 DAYS. 06/26/17 18:12 Blood - Peripheral Venous Blood Culture - Preliminary NO GROWTH OBTAINED AFTER 24 HOURS, INCUBATION TO CONTINUE FOR 4 DAYS. today temp 100.4 elevated CRP Code(s): R50.9 - FEVER, UNSPECIFIED Qualifiers: Fever type: unspecified Qualified Code(s): R50.9 - Fever, unspecified (3) Rhabdomyolysis Assessment/Plan: cpk trending down on iv fluids Code(s): M62.82 - RHABDOMYOLYSIS Qualifiers: Rhabdomyolysis type: non-traumatic Qualified Code(s): M62.82 - Rhabdomyolysis
--- NOTE | 2017-06-28 11:01 | CONSULT ---
Admitting History and Physical - Primary Care Physician PCP: Sheeba Polk - Admission History of Present Illness: Neuro IMP: Acute left cerebral dysfunction with Aphasia and Mild Right hemiparesis. Most c/w Left CVA. 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 History Source: Medical Record Limitations to Obtaining History: Clinical Condition - Smoking History Smoking history: Never smoked Have you smoked in the past 12 months: No - Alcohol/Substance Use Hx Alcohol Use: No History - Admission Reason For Visit: FEVER; ALTERED MENTAL SATUS - Diagnostics X-ray: Report Reviewed CT Scan: Report Reviewed - General Mental Status: Confused Attention: Distractible Ability to Follow Directions: Poor Head/Neck Control: Fair - Hearing Hearing: Impaired Hearing Aide: No With Patient: No Speech Evaluation - Communication Primary Language: SPANISH Communication: Yes: Aphasia Oral Expression Ability: Yes: Severe Impairment - Speech Production Able to Make Needs Known: Yes: Severely Impaired Intelligibility: Yes: Severely Impaired - Speech Characteristics Voice Loudness: Normal Voice Pitch: Yes: Normal Voice Phonatory-based Quality: Yes: Normal Speech Pattern: Impaired Speech Clarity: < 25% Articulation: Yes: Imprecise Dysfluency: Yes: Clonic Rate of Speech: Too Fast - Language/Auditory Comprehension Observation: Able to respond to yes/no queries: No, Yes/No Confusion: Yes, Comprehends Conversational Speech: No (Follows rare 1 stage commands), Benefits from Slow Speech: Yes, Benefits from Repetiton: Yes, Benefits from Increased Volume of Speech: Yes - Language/Verbal Expression Aphasia: Yes: Impaired Repetition, Apraxia Able to Respond to Simple Queries: Yes: Severely Impaired Able to Communicate Wants and Needs: Yes: Severely Impaired Functional Communication Status: Yes: Severely Impaired - Swallow Evaluation/Bedside Assessment Current Nutritional Intake: NPO Oral Secretions: Yes: WFL Dentition: Yes: Adequate Facial Symmetry at Rest: Symmetrical Facial Symmetry on Retraction: Symmetrical Lingual Movement: Symmetric Laryngeal Movement: Labored,delay initiation Labial Seal: WFL Oral Prep Time: Increased Timing of Swallow: Delayed Coughing/Throat Clear: Yes (sip of water) Recommendations - Speech Evaluation, Impression/Plan Impression: Severe auditory comprehension/expressive deficits sec Aphasia with poor functional communication.Pt follows rare whole body commands, paired with gesture. Also Q[place]ALANGIN. Confused, trying to climb out of bed. Dysfluent,repetitive, unintelligible jargon, with rare intelligible social speech eg OK. Refused trial of puree. Accepted sip of water with responsive cough c/w aspiration. Frequent Snoring-like sounds when awake sec velum/base of tongue approximating posterior pharyngeal wall. O2 sat reported to be good. Suspect CIARAN. - Disposition [facility]charge to: [facility] - Dysphagia Impressions/Plan Swallowing Skills: Impaired Dysphagia Impressions: Severe Impairment, Ongoing Evaluation, Suspect Aspiration - Recommendations Diet Consistency: NPO, Other (medication via IV) Liquids: NPO
[2017-06-28] MEDS: CEFTRIAXONE IN IS-OSM DEXTROSE 2 GM/50 ML BAG IVPB SCH ×2 (11:13→21:47)
[2017-06-28] MEDS: ACYCLOVIR INJECTION 1,000 MG in DEXTROSE 5%-WATER - 250 ML IVPB SCH ×2 (11:13→21:47)
--- NOTE | 2017-06-28 19:28 | PN ---
Progress Note (short form) - Note Progress Note: NEUROLOGY FOLLOW-UP: Events reviewed and discussed with RN. Dr. Amador's consultation read and greatly appreciated. Temps to 103 F noted. Pt. has not had further neuroimaging due to agitation. However, Pt is now found seated upright in bed. Lethargic and poorly arousable. Opens eyes to sternal pressure. Opens yes with initially downward deviation then returns to primary gaze. Follows no commands Blinks to threat L>R No facial. Depressed gag Still moves L>R IMP: B/L cerebral dysfunction with possible left cerebral accentuation. SUGGEST: Continue antibiotics and antiviral Rx. Update CT of head tonight Thank you very much, Gume Cosme MD
[2017-06-28 20:33] LABS: ARTERIAL BLD GAS O2 SATURATION 97.8 % (90-98.9); ARTERIAL BLOOD GAS BASE EXCESS 0.8 meq/l (-2-2); ARTERIAL BLOOD GAS PCO2 34.2 mmHg (35-45); ARTERIAL BLOOD GAS PO2 95.2 mmHg (70-100); ARTERIAL BLOOD GAS pH 7.46 (7.35-7.45)
[2017-06-28 20:34] LABS: ALLENS TEST POSITIVE
[2017-06-28] MEDS ORDERED: PT OWN MED DRAWER 7, Y5N ONE (21:43)
[2017-06-28] MEDS: SODIUM CHLORIDE 1,000 ML IV SCH (21:46)
[2017-06-29] MEDS ORDERED: PT OWN MED DRAWER 7, Y5N ONE ×3 (03:21→22:18)
[2017-06-29] MEDS: AMPICILLIN - 2 GM in SODIUM CHLORIDE 100 ML IVPB SCH ×6 (05:00→20:51)
[2017-06-29] MEDS: SODIUM CHLORIDE 1,000 ML IV SCH (09:00)
[2017-06-29] MEDS ORDERED: THIAMINE HCL 200 MG/2 ML VIAL IVPB ONE (09:51)
--- NOTE | 2017-06-29 09:52 | PN ---
Progress Note, Physician - Current Medication List Current Medications: Active Medications Acetaminophen (Ofirmev Injection -) 1,000 mg IVPB Q6H PRN PRN Reason: FEVER Last Admin: 06/28/17 11:15 Dose: 1,000 mg Sodium Chloride (Normal Saline -) 1,000 mls @ 100 mls/hr IV ASDIR [facility] Last Admin: 06/28/17 21:46 Dose: 100 mls/hr Ampicillin Sodium 2 gm/ Sodium (Chloride) 100 mls @ 200 mls/hr IVPB Q4H [facility] Last Admin: 06/29/17 08:57 Dose: 200 mls/hr CEFTRIAXONE IN IS-OSM DEXTROSE (Ceftriaxone 2 Gm-D5w Bag) 2 gm in 50 mls @ 100 mls/hr IVPB BID [facility] Last Admin: 06/28/17 21:47 Dose: 100 mls/hr Acyclovir 1,000 mg/ Dextrose 270 mls @ 270 mls/hr IVPB BID [facility] Last Admin: 06/28/17 21:47 Dose: 270 mls/hr - Objective Vital Signs: Vital Signs Temperature 99.8 F H 06/28/17 20:43 Pulse Rate 72 06/29/17 00:43 Respiratory Rate 22 06/29/17 00:43 Blood Pressure 168/99 06/29/17 04:00 O2 Sat by Pulse Oximetry (%) 97 06/28/17 20:47 Labs: CBC, BMP 06/28/17 05:55 06/28/17 05:55 Problem List - Problems (1) B12 deficiency Assessment/Plan: replace Code(s): E53.8 - DEFICIENCY OF OTHER SPECIFIED B GROUP VITAMINS (2) Altered mental status Assessment/Plan: repeat ct nad neurology eval noted r/o CVA ? viral HSV neurochecks iv abx per ID Lumbar puncture done results noted MRI of brain, MRA - pending unclear eitology awaiting cultures broad abx coverage scd for dvt ppx replace b12 Code(s): R41.82 - ALTERED MENTAL STATUS, UNSPECIFIED Qualifiers: Altered mental status type: delirium Qualified Code(s): R41.0 - Disorientation, unspecified (3) Fever Assessment/Plan: cultures pending braod coverage for bacterial /viral Microbiology 06/27/17 16:30 Nasopharyngeal Swab - Final 06/27/17 16:30 Nasopharyngeal Swab Influenza Types A,B Antigen (JÚNIOR) - Preliminary 06/26/17 18:12 Blood - Peripheral Venous Blood Culture - Preliminary NO GROWTH OBTAINED AFTER 24 HOURS, INCUBATION TO CONTINUE FOR 4 DAYS. 06/26/17 18:12 Blood - Peripheral Venous Blood Culture - Preliminary NO GROWTH OBTAINED AFTER 24 HOURS, INCUBATION TO CONTINUE FOR 4 DAYS. today temp 100.4 elevated CRP Code(s): R50.9 - FEVER, UNSPECIFIED Qualifiers: Fever type: unspecified Qualified Code(s): R50.9 - Fever, unspecified (4) Rhabdomyolysis Assessment/Plan: cpk trending down on iv fluids follow labs Code(s): M62.82 - RHABDOMYOLYSIS Qualifiers: Rhabdomyolysis type: non-traumatic Qualified Code(s): M62.82 - Rhabdomyolysis
[2017-06-29] MEDS: CEFTRIAXONE IN IS-OSM DEXTROSE 2 GM/50 ML BAG IVPB SCH (09:54)
[2017-06-29] MEDS: ACETAMINOPHEN 1000 MG/100 ML VIAL (NON FORMULARY) IVPB PRN (09:59)
[2017-06-29] MEDS: ACYCLOVIR INJECTION 1,000 MG in DEXTROSE 5%-WATER - 250 ML IVPB SCH ×2 (11:15→22:22)
[2017-06-29 11:25] LABS: BASO % 0.1 % (0-2.0); EOS % 0.3 % (0-4.5); HEMATOCRIT 37.7 % (35.4-49); HEMOGLOBIN 12.8 GM/dL (11.7-16.9); LYMPH % 10.1 % (8-40); MCHC 34.1 g/dl (32.0-35.9); MEAN CELL VOLUME 88.1 fl (80-96); MEAN PLT VOLUME 8.2 fl (7.5-11.1); MONO % 12.8 % (3.8-10.2); NEUT % 76.7 % (42.8-82.8); PLATELET COUNT 116 K/MM3 (134-434); RBC 4.28 M/mm3 (4.00-5.60); RDW 14.6 % (11.9-15.9); WHITE BLOOD COUNT 5.7 K/mm3 (4.0-10.0)
[2017-06-29] MEDS: CYANOCOBALAMIN (VITAMIN B-12) 1000 MCG/1 ML VIAL IM SCH (11:34)
[2017-06-29 12:45] LABS: ALBUMIN 2.8 g/dl (3.4-5.0); ANION GAP 16 (8-16); BLOOD UREA NITROGEN 24 mg/dL (7-18); CALCIUM 8.5 mg/dL (8.5-10.1); CHLORIDE 105 mmol/L (98-107); CO2 22 mmol/L (21-32); GLUCOSE,RANDOM 81 mg/dL (74-106); SODIUM 143 mmol/L (136-145)
[2017-06-29 12:48] LABS: BILIRUBIN,TOTAL 0.4 mg/dL (0.2-1.0); CREATININE 0.9 mg/dL (0.7-1.3); SGPT/ALT 49 U/L (12-78); TOT PROT 5.8 g/dl (6.4-8.2)
[2017-06-29 12:51] LABS: ALK PHOS 49 U/L (45-117); SGOT/AST 115 U/L (15-37)
[2017-06-29 12:55] LABS: POTASSIUM 2.9 mmol/L (3.5-5.1)
[2017-06-29] MEDS: D5-NS + 40 MEQ KCL - 40 MEQ/1,000 ML INFUS.BAG IV SCH (14:30)
--- NOTE | 2017-06-29 19:28 | PN ---
Progress Note, Physician History of Present Illness: Not responsive to verbal stimulus Remains febrile WBC WNL - Current Medication List Current Medications: Active Medications Acetaminophen (Ofirmev Injection -) 1,000 mg IVPB Q6H PRN PRN Reason: FEVER Last Admin: 06/29/17 09:59 Dose: 1,000 mg Cyanocobalamin (Vitamin B12 Injection -) 1,000 mcg IM DAILY [facility] Last Admin: 06/29/17 11:34 Dose: 1,000 mcg Ampicillin Sodium 2 gm/ Sodium (Chloride) 100 mls @ 200 mls/hr IVPB Q4H [facility] Last Admin: 06/29/17 16:11 Dose: 200 mls/hr CEFTRIAXONE IN IS-OSM DEXTROSE (Ceftriaxone 2 Gm-D5w Bag) 2 gm in 50 mls @ 100 mls/hr IVPB BID [facility] Last Admin: 06/29/17 09:54 Dose: 100 mls/hr Acyclovir 1,000 mg/ Dextrose 270 mls @ 270 mls/hr IVPB BID [facility] Last Admin: 06/29/17 11:15 Dose: 270 mls/hr Dextrose/Sodium Chloride (Dextrose 5%-Normal Saline+40 Meq Kcl -) 40 meq in 1, 000 mls @ 75 mls/hr IV ASDIR [facility] Last Admin: 06/29/17 14:30 Dose: 75 mls/hr - Objective Vital Signs: Vital Signs Temperature 98.8 F 06/29/17 18:00 Pulse Rate 82 06/29/17 18:00 Respiratory Rate 26 H 06/29/17 18:00 Blood Pressure 144/89 06/29/17 18:00 O2 Sat by Pulse Oximetry (%) 96 06/29/17 09:00 Constitutional: Yes: No Distress Eyes: Yes: Conjunctiva Clear Cardiovascular: Yes: Regular Rate and Rhythm, S1 Respiratory: Yes: Diminished Gastrointestinal: Yes: Normal Bowel Sounds, Soft. No: Tenderness Edema: Yes Labs: CBC, BMP 06/29/17 10:57 06/29/17 10:57 Assessment/Plan Fever/ altered mental status ? CVA CT negative CSF c/s no growth CSF VZV PCR pending Continue empiric ceftriaxone/ ampicillin/ acyclovir
[2017-06-29] MEDS: CEFTRIAXONE 2 GM in DEXTROSE 5%-WATER - 100 ML IVPB SCH ×3 (23:09→23:10)
[2017-06-30 06:40] LABS: EOS % 1.9 % (0-4.5); HEMATOCRIT 36.7 % (35.4-49); HEMOGLOBIN 12.6 GM/dL (11.7-16.9); LYMPH % 13.5 % (8-40); MCH 30.4 pg (25.7-33.7); MCHC 34.5 g/dl (32.0-35.9); MEAN CELL VOLUME 88.2 fl (80-96); MEAN PLT VOLUME 8.4 fl (7.5-11.1); MONO % 10.3 % (3.8-10.2); NEUT % 74.3 % (42.8-82.8); PLATELET COUNT 126 K/MM3 (134-434); RBC 4.16 M/mm3 (4.00-5.60); RDW 14.5 % (11.9-15.9); WHITE BLOOD COUNT 4.5 K/mm3 (4.0-10.0)
[2017-06-30 07:02] LABS: ALBUMIN 2.8 g/dl (3.4-5.0); ALK PHOS 47 U/L (45-117); ANION GAP 12 (8-16); BILIRUBIN,TOTAL 0.4 mg/dL (0.2-1.0); BLOOD UREA NITROGEN 17 mg/dL (7-18); CALCIUM 8.1 mg/dL (8.5-10.1); CHLORIDE 106 mmol/L (98-107); CO2 26 mmol/L (21-32); CREATININE 0.9 mg/dL (0.7-1.3); GLUCOSE,RANDOM 102 mg/dL (74-106); SGOT/AST 93 U/L (15-37); SGPT/ALT 47 U/L (12-78); SODIUM 144 mmol/L (136-145); TOT PROT 5.7 g/dl (6.4-8.2)
[2017-06-30 07:10] LABS: POTASSIUM 2.8 mmol/L (3.5-5.1)
[2017-06-30] MEDS: AMPICILLIN - 2 GM in SODIUM CHLORIDE 100 ML IVPB SCH ×6 (07:36→21:58)
[2017-06-30] MEDS: CEFTRIAXONE IN IS-OSM DEXTROSE 2 GM/50 ML BAG IVPB SCH (08:02)
[2017-06-30] MEDS ORDERED: PT OWN MED DRAWER 7, Y5N ONE ×9 (08:32→21:57)
[2017-06-30] MEDS: CEFTRIAXONE 2 GM in DEXTROSE 5%-WATER - 100 ML IVPB SCH ×2 (09:00→21:31)
--- NOTE | 2017-06-30 09:14 | PN ---
Progress Note, Physician History of Present Illness: Opens eyes to tactile stimulus Attemps to verbalize Temps down today Afebrile + Seizure activity x 1min noted - Current Medication List Current Medications: Active Medications Acetaminophen (Ofirmev Injection -) 1,000 mg IVPB Q6H PRN PRN Reason: FEVER Last Admin: 06/29/17 09:59 Dose: 1,000 mg Cyanocobalamin (Vitamin B12 Injection -) 1,000 mcg IM DAILY [facility] Last Admin: 06/29/17 11:34 Dose: 1,000 mcg Acyclovir 1,000 mg/ Dextrose 270 mls @ 270 mls/hr IVPB BID [facility] Last Admin: 06/29/17 22:22 Dose: 270 mls/hr Dextrose/Sodium Chloride (Dextrose 5%-Normal Saline+40 Meq Kcl -) 40 meq in 1, 000 mls @ 75 mls/hr IV ASDIR [facility] Last Admin: 06/29/17 14:30 Dose: 75 mls/hr Ceftriaxone Sodium 2 gm/ (Dextrose) 100 mls @ 200 mls/hr IVPB BID [facility] Stop: 06/30/17 09:59 Last Admin: 06/29/17 23:10 Dose: 200 mls/hr - Objective Vital Signs: Vital Signs Temperature 98.2 F 06/30/17 02:00 Pulse Rate 78 06/30/17 06:00 Respiratory Rate 22 06/30/17 06:00 Blood Pressure 142/88 06/30/17 06:00 O2 Sat by Pulse Oximetry (%) 92 L 06/29/17 20:14 Constitutional: Yes: No Distress Eyes: Yes: Conjunctiva Clear Cardiovascular: Yes: Regular Rate and Rhythm, S1, S2 Respiratory: Yes: CTA Bilaterally, Diminished Gastrointestinal: Yes: Normal Bowel Sounds, Soft. No: Tenderness Edema: Yes Edema: LLE: 1+, RLE: 1+ Labs: CBC, BMP 06/30/17 05:52 06/30/17 05:52 Assessment/Plan Fever/ altered mental status ? CVA Generalized seizure activity CT negative CSF c/s no growth CSF VZV PCR pending Continue empiric ceftriaxone/ ampicillin/ acyclovir
[2017-06-30] MEDS: CYANOCOBALAMIN (VITAMIN B-12) 1000 MCG/1 ML VIAL IM SCH (10:26)
[2017-06-30] MEDS: ACYCLOVIR INJECTION 1,000 MG in DEXTROSE 5%-WATER - 250 ML IVPB SCH ×2 (10:30→21:31)
[2017-06-30] MEDS: POTASSIUM CHLORIDE 10 MEQ in SODIUM CHLORIDE 100 ML IVPB SCH ×6 (10:33→17:16)
--- NOTE | 2017-06-30 11:01 | CON.PULM ---
Consult Consult Specialty:: PULMONARY Referred by:: Dr. Polk Reason for Consultation:: tachypnea - History of Present Illness Chief Complaint: altered mental status History of Present Illness: 81yo male without significant medical history who was admitted for altered mental status which has been progressive over the past few months. Febrile and altered, had lumbar puncture by neurology which had 2 WBC, normal glucose and protein. Started on empiric coverage for meningitis but pt remains poorly responsive. Noted to have seizure activity last 2 days. Pt unable to provide further history at this time. - History Source History Provided By: Medical Record Limitations to Obtaining History: Clinical Condition - Alcohol/Substance Use Hx Alcohol Use: No - Smoking History Smoking history: Never smoked Have you smoked in the past 12 months: No Home Medications - Allergies Allergies/Adverse Reactions: Allergies Allergy/AdvReac Type Severity Reaction Status Date / Time No Known Allergies Allergy Verified 06/26/17 14:42 - Home Medications Home Medications: Ambulatory Orders NK [No Known Home Medication] 06/26/17 Review of Systems Unable to obtain ROS, reason: pt unresponsive Physical Exam Vital Sings: Vital Signs Temperature 98.9 F 06/30/17 10:00 Pulse Rate 66 06/30/17 10:00 Respiratory Rate 20 06/30/17 10:00 Blood Pressure 156/98 06/30/17 10:00 O2 Sat by Pulse Oximetry (%) 95 06/30/17 09:00 Constitutional: Yes: Diaphoresis, Mild Distress (mildly tachypneic) Eyes: Yes: Conjunctiva Clear, EOM Intact HENT: Yes: Atraumatic, Normocephalic Neck: Yes: Supple, Trachea Midline Cardiovascular: Yes: Tachycardia Respiratory: Yes: Diminished (decreased breath sounds at the bases) ...Clubbing: No Gastrointestinal: Yes: Normal Bowel Sounds, Soft. No: Tenderness Edema: No Labs: CBC, BMP 06/30/17 05:52 06/30/17 05:52 ABG Results ABG pH 7.46 (7.35-7.45) H 06/28/17 20:25 ABG pCO2 at Pt Temp 34.2 mmHg (35-45) L 06/28/17 20:25 ABG pO2 at Pt Temp 95.2 mmHg (70-100) 06/28/17 20:25 ABG HCO3 23.8 meq/L (22-26) 06/28/17 20:25 ABG O2 Sat (Measured) 97.8 % (90-98.9) 06/28/17 20:25 ABG O2 Content 16.3 % vol (15-22) 06/28/17 20:25 ABG Base Excess 0.8 meq/l (-2-2) 06/28/17 20:25 Imaging - Results Chest X-ray: Report Reviewed, Image Reviewed Problem List - Problems (1) Altered mental status Code(s): R41.82 - ALTERED MENTAL STATUS, UNSPECIFIED Qualifiers: Altered mental status type: delirium Qualified Code(s): R41.0 - Disorientation, unspecified (2) Fever Code(s): R50.9 - FEVER, UNSPECIFIED Qualifiers: Fever type: unspecified Qualified Code(s): R50.9 - Fever, unspecified (3) Rhabdomyolysis Code(s): M62.82 - RHABDOMYOLYSIS Qualifiers: Rhabdomyolysis type: non-traumatic Qualified Code(s): M62.82 - Rhabdomyolysis Assessment/Plan Altered Mental Status Rhabdomyolysis r/o Seizures Acute Kidney Injury improved - continue empiric antibiotics - neuro work up in progress - consider antieplieptics - IVF - monitor CPK - CXR unremarkable, ABG showing mild respiratory alkalosis, tachypnea likely secondary to underlying process - DVT prophylaxis Thank you for this consult Abraham Michael MD
--- NOTE | 2017-06-30 14:40 | CON.NEP ---
Consult Consult Specialty:: nephrology Referred by:: maritza Reason for Consultation:: hypokalemia - History of Present Illness Chief Complaint: altered mental status History of Present Illness: admitted and being worked up for altered mental status and fever left cerebral dysfunction possible vasculitis consulted for development of hypokalemia he is npo and has been so 2/2 confusion and dysphasia pmhx is unremarkable - History Source History Provided By: Medical Record Limitations to Obtaining History: Clinical Condition - Alcohol/Substance Use Hx Alcohol Use: No - Smoking History Smoking history: Never smoked Have you smoked in the past 12 months: No Home Medications - Allergies Allergies/Adverse Reactions: Allergies Allergy/AdvReac Type Severity Reaction Status Date / Time No Known Allergies Allergy Verified 06/26/17 14:42 - Home Medications Home Medications: Ambulatory Orders NK [No Known Home Medication] 06/26/17 Nephrology Consult - Height Height: 5 ft 9 in - Weight Weight: 219 lb 15.988 oz - BMI Body Mass Index (BMI): 32.5 - Lab Results CBC,BMP: CBC, BMP 06/30/17 05:52 06/30/17 05:52 Anion Gap: Anion Gap Anion Gap 12 (8-16) 06/30/17 05:52 - Physical Examination Vital Signs: Vital Signs Temperature 98.9 F 06/30/17 10:00 Pulse Rate 78 06/30/17 11:25 Respiratory Rate 20 06/30/17 11:25 Blood Pressure 158/96 06/30/17 11:25 O2 Sat by Pulse Oximetry (%) 95 06/30/17 09:00 Assessment/Plan altered mental status and fever being worked up on empirical abx and antiviral -dropping platelets ?2/2 meds? r/o thrombocytopenic purpura -Prerenal azotemia may be 2/2 acute illness r/o early kidney involvement u/a on admission bland Hypokalemia nutritional deficiency no gi losses or diuretic rx Plan- agree with k replacement will start ppn with k supplements peripheral smear r/o schistocytes LDH repeat u/a
--- NOTE | 2017-06-30 14:55 | PN ---
Progress Note, Physician Chief Complaint: AMS FUO History of Present Illness: NAD, pleasantly confused family at bedside still hypokalemic facial twitching while I was in the room examining the patient, was able to respond appropriately during the twitch. I don't think he's seizing. Likely 2/2 to hypokalemia. - Current Medication List Current Medications: Active Medications Acetaminophen (Ofirmev Injection -) 1,000 mg IVPB Q6H PRN PRN Reason: FEVER Last Admin: 06/29/17 09:59 Dose: 1,000 mg Cyanocobalamin (Vitamin B12 Injection -) 1,000 mcg IM DAILY [facility] Last Admin: 06/30/17 10:26 Dose: 1,000 mcg Acyclovir 1,000 mg/ Dextrose 270 mls @ 270 mls/hr IVPB BID [facility] Last Admin: 06/30/17 10:30 Dose: 270 mls/hr Dextrose/Sodium Chloride (Dextrose 5%-Normal Saline+40 Meq Kcl -) 40 meq in 1, 000 mls @ 75 mls/hr IV ASDIR [facility] Last Admin: 06/29/17 14:30 Dose: 75 mls/hr Ampicillin Sodium 2 gm/ Sodium (Chloride) 100 mls @ 200 mls/hr IVPB Q4H-IV [facility] Last Admin: 06/30/17 14:24 Dose: 200 mls/hr Potassium Chloride 10 meq/ (Sodium Chloride) 105 mls @ 105 mls/hr IVPB Q1H [facility] Stop: 06/30/17 15:59 Last Admin: 06/30/17 13:22 Dose: 105 mls/hr Ceftriaxone Sodium 2 gm/ (Dextrose) 100 mls @ 200 mls/hr IVPB BID [facility] Last Admin: 06/30/17 09:00 Dose: 200 mls/hr - Objective Vital Signs: Vital Signs Temperature 98.9 F 06/30/17 10:00 Pulse Rate 78 06/30/17 11:25 Respiratory Rate 20 06/30/17 11:25 Blood Pressure 158/96 06/30/17 11:25 O2 Sat by Pulse Oximetry (%) 95 06/30/17 09:00 Constitutional: Yes: Well Nourished, No Distress, Calm Cardiovascular: Yes: Regular Rate and Rhythm Respiratory: Yes: Regular, Rhonchi (diffuse) Gastrointestinal: Yes: Normal Bowel Sounds, Soft Musculoskeletal: Yes: WNL Extremities: Yes: WNL Edema: No Peripheral Pulses WNL: Yes Neurological: Yes: Alert, Oriented Psychiatric: Yes: Alert, Oriented Labs: CBC, BMP 06/30/17 05:52 06/30/17 05:52 Problem List - Problems (1) Altered mental status Assessment/Plan: mental status improved -vocal although garbled speech with periodic use of [place] Code(s): R41.82 - ALTERED MENTAL STATUS, UNSPECIFIED Qualifiers: Altered mental status type: delirium Qualified Code(s): R41.0 - Disorientation, unspecified (2) Fever Assessment/Plan: afebrile since yesterday -CSF serology pending -CT chest/abd/pelvis Code(s): R50.9 - FEVER, UNSPECIFIED Qualifiers: Fever type: unspecified Qualified Code(s): R50.9 - Fever, unspecified (3) Rhabdomyolysis Assessment/Plan: -improving -IVF Code(s): M62.82 - RHABDOMYOLYSIS Qualifiers: Rhabdomyolysis type: non-traumatic Qualified Code(s): M62.82 - Rhabdomyolysis (4) Hypokalemia Assessment/Plan: -seen by renal -2/2 to NPO status -would have speech therapy re-evaluate ability to initiate PO intake -IVF with kcl -KCL 10 meq x 6 -repeat labs in AM Code(s): E87.6 - HYPOKALEMIA Assessment/Plan see problem list -clinimix? normalize electrolytes before initiating RD consult
[2017-06-30] MEDS: D5-NS + 40 MEQ KCL - 40 MEQ/1,000 ML INFUS.BAG IV SCH ×2 (15:18→21:30)
[2017-06-30 15:57] LABS: ADD RBC MORPHOLOGY YES
[2017-06-30 16:09] LABS: OVALOCYTE 1+
[2017-06-30 16:34] LABS: URINE APPEARANCE CLEAR; URINE BILIRUBIN NEGATIVE (NEGATIVE); URINE BLOOD NEGATIVE (NEGATIVE); URINE COLOR LTYELLOW; URINE GLUCOSE (UA) 1+ (NEGATIVE); URINE KETONE NEGATIVE (NEGATIVE); URINE LEUK ESTERASE NEGATIVE (NEGATIVE); URINE NITRITE NEGATIVE (NEGATIVE); URINE PROTEIN 1+ (NEGATIVE); URINE UROBILINOGEN NEGATIVE mg/dL (0.2-1.0)
[2017-06-30 16:44] LABS: EPI CELLS RARE /HPF (FEW); URINE BACTERIA RARE /hpf (NONE SEEN); URINE MUCUS RARE
[2017-07-01 01:10] LABS: ANION GAP 14 (8-16); BLOOD UREA NITROGEN 13 mg/dL (7-18); CALCIUM 8.5 mg/dL (8.5-10.1); CHLORIDE 109 mmol/L (98-107); CO2 23 mmol/L (21-32); CREATININE 0.8 mg/dL (0.7-1.3); GLUCOSE,RANDOM 112 mg/dL (74-106); POTASSIUM 3.5 mmol/L (3.5-5.1); SODIUM 146 mmol/L (136-145)
[2017-07-01] MEDS ORDERED: PT OWN MED DRAWER 7, Y5N ONE ×5 (02:05→20:50)
[2017-07-01] MEDS: AMPICILLIN - 2 GM in SODIUM CHLORIDE 100 ML IVPB SCH ×6 (02:08→21:00)
[2017-07-01 05:48] LABS: BASO % 0.1 % (0-2.0); EOS % 2.2 % (0-4.5); HEMATOCRIT 35.3 % (35.4-49); HEMOGLOBIN 12.2 GM/dL (11.7-16.9); LYMPH % 11.7 % (8-40); MCH 30.3 pg (25.7-33.7); MCHC 34.5 g/dl (32.0-35.9); MEAN CELL VOLUME 87.8 fl (80-96); MEAN PLT VOLUME 8.2 fl (7.5-11.1); MONO % 9.7 % (3.8-10.2); NEUT % 76.3 % (42.8-82.8); PLATELET COUNT 117 K/MM3 (134-434); RBC 4.03 M/mm3 (4.00-5.60); RDW 14.5 % (11.9-15.9)
[2017-07-01 06:16] LABS: ALBUMIN 2.8 g/dl (3.4-5.0); ANION GAP 7 (8-16); BLOOD UREA NITROGEN 12 mg/dL (7-18); CHLORIDE 109 mmol/L (98-107); CO2 25 mmol/L (21-32); GLUCOSE,RANDOM 117 mg/dL (74-106); POTASSIUM 3.2 mmol/L (3.5-5.1); SODIUM 141 mmol/L (136-145)
[2017-07-01 06:19] LABS: ALK PHOS 46 U/L (45-117); BILIRUBIN,TOTAL 0.6 mg/dL (0.2-1.0); CREATININE 0.7 mg/dL (0.7-1.3); SGOT/AST 64 U/L (15-37); SGPT/ALT 41 U/L (12-78); TOT PROT 5.4 g/dl (6.4-8.2)
--- NOTE | 2017-07-01 07:20 | PN ---
Progress Note, Physician Chief Complaint: ID Speech Says occasional words but speech mostly garbled No further seizures per nursing staff. - Current Medication List Current Medications: Active Medications Acetaminophen (Ofirmev Injection -) 1,000 mg IVPB Q6H PRN PRN Reason: FEVER Last Admin: 06/29/17 09:59 Dose: 1,000 mg Cyanocobalamin (Vitamin B12 Injection -) 1,000 mcg IM DAILY [facility] Last Admin: 06/30/17 10:26 Dose: 1,000 mcg Acyclovir 1,000 mg/ Dextrose 270 mls @ 270 mls/hr IVPB BID [facility] Last Admin: 06/30/17 21:31 Dose: 270 mls/hr Dextrose/Sodium Chloride (Dextrose 5%-Normal Saline+40 Meq Kcl -) 40 meq in 1, 000 mls @ 75 mls/hr IV ASDIR [facility] Last Admin: 06/30/17 21:30 Dose: 75 mls/hr Ampicillin Sodium 2 gm/ Sodium (Chloride) 100 mls @ 200 mls/hr IVPB Q4H-IV [facility] Last Admin: 07/01/17 05:50 Dose: 200 mls/hr Ceftriaxone Sodium 2 gm/ (Dextrose) 100 mls @ 200 mls/hr IVPB BID [facility] Last Admin: 06/30/17 21:31 Dose: 200 mls/hr - Objective Vital Signs: Vital Signs Temperature 98.7 F 07/01/17 06:00 Pulse Rate 67 07/01/17 06:00 Respiratory Rate 21 07/01/17 06:00 Blood Pressure 157/103 07/01/17 06:00 O2 Sat by Pulse Oximetry (%) 99 06/30/17 21:00 Constitutional: Yes: No Distress Neck: Yes: WNL, Supple Cardiovascular: Yes: Regular Rate and Rhythm, S1, S2 Respiratory: Yes: WNL, Regular, CTA Bilaterally Gastrointestinal: Yes: WNL, Normal Bowel Sounds, Soft. No: Tenderness, Tenderness, Rebound Edema: No Labs: CBC, BMP 07/01/17 05:20 07/01/17 05:20 Problem List - Problems (1) Altered mental status Code(s): R41.82 - ALTERED MENTAL STATUS, UNSPECIFIED Qualifiers: Altered mental status type: delirium Qualified Code(s): R41.0 - Disorientation, unspecified (2) Fever Code(s): R50.9 - FEVER, UNSPECIFIED Qualifiers: Fever type: unspecified Qualified Code(s): R50.9 - Fever, unspecified (3) Rhabdomyolysis Code(s): M62.82 - RHABDOMYOLYSIS Qualifiers: Rhabdomyolysis type: non-traumatic Qualified Code(s): M62.82 - Rhabdomyolysis Assessment/Plan Microbiology 06/27/17 16:30 Nasopharyngeal Swab Influenza Types A,B Antigen (JÚNIOR) - Final 06/27/17 16:30 Nasopharyngeal Swab - Final 06/26/17 20:00 Cerebral Spinal Fluid - Lumbar Puncture Gram Stain - Final 06/26/17 20:00 Cerebral Spinal Fluid - Lumbar Puncture CSF Culture - Final 06/26/17 20:00 Cerebral Spinal Fluid - Lumbar Puncture Gram Stain - Final 06/26/17 16:03 Urine - Urine Clean Catch Urine Culture - Final Morganella Morganii 06/27/17 18:00 Blood - Peripheral Venous Blood Culture - Preliminary NO GROWTH OBTAINED AFTER 72 HOURS, INCUBATION TO CONTINUE FOR 2 DAYS. 06/27/17 17:00 Blood - Peripheral Venous Blood Culture - Preliminary NO GROWTH OBTAINED AFTER 72 HOURS, INCUBATION TO CONTINUE FOR 2 DAYS. 06/26/17 20:00 Cerebral Spinal Fluid - Lumbar Puncture CSF Culture - Preliminary 06/26/17 18:12 Blood - Peripheral Venous Blood Culture - Preliminary NO GROWTH OBTAINED AFTER 96 HOURS, INCUBATION TO CONTINUE FOR 1 DAYS. 06/26/17 18:12 Blood - Peripheral Venous Blood Culture - Preliminary NO GROWTH OBTAINED AFTER 96 HOURS, INCUBATION TO CONTINUE FOR 1 DAYS. 06/26/17 18:12 Blood - Peripheral Venous Blood Culture - Preliminary NO GROWTH OBTAINED AFTER 24 HOURS, INCUBATION TO CONTINUE FOR 4 DAYS. 06/26/17 18:12 Blood - Peripheral Venous Blood Culture - Preliminary NO GROWTH OBTAINED AFTER 24 HOURS, INCUBATION TO CONTINUE FOR 4 DAYS. Laboratory Tests 06/26/17 06/26/17 06/26/17 20:00 20:00 20:00 WBC RBC Hgb Hct Plt Count Neutrophils % Lymphocytes % Monocytes % BUN Creatinine Creat Clearance w eGFR Total Bilirubin AST Alkaline Phosphatase CSF Appearance Clear CSF Color Colorless CSF WBC 2 CSF RBC 2.00 CSF Neutrophils 9 CSF Lymphocytes 16 CSF Monocytes 10 CSF Glucose CSF Total Protein RPR Titer Lyme IgG Ab Interpret Pending Lyme IgM Ab Index Pending HSV I DNA Quant (PCR) Negative HSV II DNA Quant (PCR) Negative M.pneumoniae IgG Titer M.pneumoniae IgM Titer VZV DNA (PCR) 06/26/17 06/26/17 06/26/17 20:00 20:00 21:00 WBC RBC Hgb Hct Plt Count Neutrophils % Lymphocytes % Monocytes % BUN Creatinine Creat Clearance w eGFR Total Bilirubin AST Alkaline Phosphatase CSF Appearance CSF Color CSF WBC CSF RBC CSF Neutrophils CSF Lymphocytes CSF Monocytes CSF Glucose 81 H CSF Total Protein 40 RPR Titer Nonreactive Lyme IgG Ab Interpret Lyme IgM Ab Index HSV I DNA Quant (PCR) HSV II DNA Quant (PCR) M.pneumoniae IgG Titer M.pneumoniae IgM Titer VZV DNA (PCR) 06/27/17 06/28/17 06/28/17 17:00 05:55 05:55 WBC 9.1 Pending RBC Pending Hgb Hct Pending Plt Count Neutrophils % Lymphocytes % Monocytes % BUN 22 H Creatinine 1.0 Creat Clearance w eGFR > 60 Total Bilirubin AST Alkaline Phosphatase CSF Appearance CSF Color CSF WBC CSF RBC CSF Neutrophils CSF Lymphocytes CSF Monocytes CSF Glucose CSF Total Protein RPR Titer Lyme IgG Ab Interpret Lyme IgM Ab Index HSV I DNA Quant (PCR) HSV II DNA Quant (PCR) M.pneumoniae IgG Titer M.pneumoniae IgM Titer VZV DNA (PCR) 06/28/17 06/28/17 07/01/17 10:45 11:15 05:20 WBC 5.0 RBC Hgb 12.2 Hct 35.3 L Plt Count 117 L Neutrophils % 76.3 Lymphocytes % 11.7 Monocytes % 9.7 BUN Creatinine Creat Clearance w eGFR Total Bilirubin AST Alkaline Phosphatase CSF Appearance CSF Color CSF WBC CSF RBC CSF Neutrophils CSF Lymphocytes CSF Monocytes CSF Glucose CSF Total Protein RPR Titer Lyme IgG Ab Interpret Lyme IgM Ab Index HSV I DNA Quant (PCR) HSV II DNA Quant (PCR) M.pneumoniae IgG Titer Pending M.pneumoniae IgM Titer Pending VZV DNA (PCR) Pending 07/01/17 05:20 WBC RBC Hgb Hct Plt Count Neutrophils % Lymphocytes % Monocytes % BUN Creatinine Creat Clearance w eGFR Total Bilirubin 0.6 D AST 64 H D Alkaline Phosphatase 46 CSF Appearance CSF Color CSF WBC CSF RBC CSF Neutrophils CSF Lymphocytes CSF Monocytes CSF Glucose CSF Total Protein RPR Titer Lyme IgG Ab Interpret Lyme IgM Ab Index HSV I DNA Quant (PCR) HSV II DNA Quant (PCR) M.pneumoniae IgG Titer M.pneumoniae IgM Titer VZV DNA (PCR) Assessment Thus far all infectious disease workup to date negative. Clinical findings consistent with CVA. However fever and seizures raise question of an infectious etiology. All remaining is HVZ PCR Mycoplasma though both seem remote possibility. NO temp in last 48 hours. Did grow GNB in urine could have caused fever though not the [employer] findings. We did not send full encephalitis panel but the CSF was not really suggestive of a [employer] infection to begin with. Plan Continue Ceftriaxone along wit Acyclovir the latter until HVZ back and negative Perry [place]
--- NOTE | 2017-07-01 08:54 | PN ---
Progress Note, Physician - Current Medication List Current Medications: Active Medications Acetaminophen (Ofirmev Injection -) 1,000 mg IVPB Q6H PRN PRN Reason: FEVER Last Admin: 06/29/17 09:59 Dose: 1,000 mg Cyanocobalamin (Vitamin B12 Injection -) 1,000 mcg IM DAILY [facility] Last Admin: 06/30/17 10:26 Dose: 1,000 mcg Acyclovir 1,000 mg/ Dextrose 270 mls @ 270 mls/hr IVPB BID [facility] Last Admin: 06/30/17 21:31 Dose: 270 mls/hr Dextrose/Sodium Chloride (Dextrose 5%-Normal Saline+40 Meq Kcl -) 40 meq in 1, 000 mls @ 75 mls/hr IV ASDIR [facility] Last Admin: 06/30/17 21:30 Dose: 75 mls/hr Ampicillin Sodium 2 gm/ Sodium (Chloride) 100 mls @ 200 mls/hr IVPB Q4H-IV [facility] Last Admin: 07/01/17 05:50 Dose: 200 mls/hr Ceftriaxone Sodium 2 gm/ (Dextrose) 100 mls @ 200 mls/hr IVPB BID [facility] Last Admin: 06/30/17 21:31 Dose: 200 mls/hr - Objective Vital Signs: Vital Signs Temperature 98.7 F 07/01/17 06:00 Pulse Rate 67 07/01/17 06:00 Respiratory Rate 21 07/01/17 06:00 Blood Pressure 157/103 07/01/17 06:00 O2 Sat by Pulse Oximetry (%) 99 06/30/17 21:00 Labs: CBC, BMP 07/01/17 05:20 07/01/17 05:20 Problem List - Problems (1) B12 deficiency Assessment/Plan: replace Code(s): E53.8 - DEFICIENCY OF OTHER SPECIFIED B GROUP VITAMINS (2) Altered mental status Assessment/Plan: repeat ct nad neurology eval noted r/o CVA ? viral HSV neurochecks iv abx per ID Lumbar puncture done results noted MRI of brain, MRA - pending unclear eitology awaiting cultures broad abx coverage scd for dvt ppx replace b12 Code(s): R41.82 - ALTERED MENTAL STATUS, UNSPECIFIED Qualifiers: Altered mental status type: delirium Qualified Code(s): R41.0 - Disorientation, unspecified (3) Fever Assessment/Plan: cultures pending braod coverage for bacterial /viral Microbiology 06/27/17 16:30 Nasopharyngeal Swab - Final 06/27/17 16:30 Nasopharyngeal Swab Influenza Types A,B Antigen (JÚNIOR) - Preliminary 06/26/17 18:12 Blood - Peripheral Venous Blood Culture - Preliminary NO GROWTH OBTAINED AFTER 24 HOURS, INCUBATION TO CONTINUE FOR 4 DAYS. 06/26/17 18:12 Blood - Peripheral Venous Blood Culture - Preliminary NO GROWTH OBTAINED AFTER 24 HOURS, INCUBATION TO CONTINUE FOR 4 DAYS. today temp 100.4 elevated CRP Code(s): R50.9 - FEVER, UNSPECIFIED Qualifiers: Fever type: unspecified Qualified Code(s): R50.9 - Fever, unspecified (4) Rhabdomyolysis Assessment/Plan: cpk trending down on iv fluids follow labs Code(s): M62.82 - RHABDOMYOLYSIS Qualifiers: Rhabdomyolysis type: non-traumatic Qualified Code(s): M62.82 - Rhabdomyolysis (5) Muscle twitching Assessment/Plan: able to move ext--not consistent with seizures neuro follow up follow lytes Code(s): R25.3 - FASCICULATION (6) Abnormal blood electrolyte level Assessment/Plan: correct monitor Code(s): E87.8 - OTH DISORDERS OF ELECTROLYTE AND FLUID BALANCE, NEC
[2017-07-01] MEDS: ACYCLOVIR INJECTION 1,000 MG in DEXTROSE 5%-WATER - 250 ML IVPB SCH ×2 (10:25→21:00)
[2017-07-01] MEDS: CEFTRIAXONE 2 GM in DEXTROSE 5%-WATER - 100 ML IVPB SCH ×2 (10:25→21:00)
[2017-07-01] MEDS: KCL 10 MEQ IVPB 10 MEQ/100 ML INFUS.BAG IVPB SCH ×2 (10:28→13:00)
[2017-07-01] MEDS: CYANOCOBALAMIN (VITAMIN B-12) 1000 MCG/1 ML VIAL IM SCH (10:32)
[2017-07-01 10:43] LABS: MAGNESIUM 2.1 mg/dL (1.8-2.4)
--- NOTE | 2017-07-01 11:54 | PN ---
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 He is understanding a little more, now following some 1 step commands with yes/No confusion. He is more aware of communication deficits. He attends to left side more to right.Suspect left hemianopsia. He is imitating/repeating occas numbers in Eng and Bel[place]ian. His primary language is [place]ian, learning [place] at 32 yo. 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 He is moving both extremities, but restrained so unable to sassess assymety today. He had right side weakness on Saturday. He is producing a few words interspersed in mostly unintelligible speech, sec Aphasia/Apraxia/ mild Dysarthria.Unable to name, rare repetition, some spontaneous words eg hometown in [place].Yes/no confusion-inconsistent and unreliable. Swallow is labored in initiation with so weakness in vom/rom of laryngeal excursion. Overtly tolerating puree with greater risk with liquids. IMP: Aphasia/Apraxia/ Dysarthria/ Dysphagia with mild improvement since last seen on Saturday.Expressive communication seems better in Primary language/ [place]ian. No longer snoring/snorting while awake,noted on Saturday. Beginning to become aware with some frustration. Confusion can not be r/o but maybe mild. Mostly communication deficits are language based. REC: r/o CVA. MRI pending Defer NGT. Trial of dys puree/honey thick liquid, single sips d/c if signs of aspiration MBS once stronger. PT eval- can pt tolerate OOB for meals? Educated staff/family of Aphasia/dysphagia/ways to maximize communicxation Rehab placement
[2017-07-01] MEDS: D5-NS + 40 MEQ KCL - 40 MEQ/1,000 ML INFUS.BAG IV SCH (15:00)
--- NOTE | 2017-07-01 15:23 | PN ---
Progress Note (short form) - Note Progress Note: More alert, but remains mildly confused. No acute events overnight. Intake & Output 06/28/17 06/29/17 06/30/17 07/01/17 23:59 23:59 23:59 23:59 Intake Total 3250 2275 4070 875 Output Total 300 Balance 3250 2275 3770 875 Weight 219 lb 15.988 oz Last Vital Signs Temp Pulse Resp BP Pulse Ox 98.8 F 76 19 176/95 99 07/01/17 12:59 07/01/17 12:59 07/01/17 12:59 07/01/17 12:59 06/30/17 21:00 Active Medications Acetaminophen (Ofirmev Injection -) 1,000 mg IVPB Q6H PRN PRN Reason: FEVER Last Admin: 06/29/17 09:59 Dose: 1,000 mg Cyanocobalamin (Vitamin B12 Injection -) 1,000 mcg IM DAILY [facility] Last Admin: 07/01/17 10:32 Dose: 1,000 mcg Acyclovir 1,000 mg/ Dextrose 270 mls @ 270 mls/hr IVPB BID [facility] Last Admin: 07/01/17 10:25 Dose: 270 mls/hr Dextrose/Sodium Chloride (Dextrose 5%-Normal Saline+40 Meq Kcl -) 40 meq in 1, 000 mls @ 75 mls/hr IV ASDIR [facility] Last Admin: 06/30/17 21:30 Dose: 75 mls/hr Ampicillin Sodium 2 gm/ Sodium (Chloride) 100 mls @ 200 mls/hr IVPB Q4H-IV [facility] Last Admin: 07/01/17 10:38 Dose: 200 mls/hr Ceftriaxone Sodium 2 gm/ (Dextrose) 100 mls @ 200 mls/hr IVPB BID [facility] Last Admin: 07/01/17 10:25 Dose: 200 mls/hr Constitutional: Yes: Awake, mildly confused Eyes: Yes: Conjunctiva Clear, EOM Intact HENT: Yes: Atraumatic, Normocephalic Neck: Yes: Supple, Trachea Midline Cardiovascular: Yes: S1S2 Respiratory: Yes: Scattered rhonchi ...Clubbing: No Gastrointestinal: Yes: Normal Bowel Sounds, Soft. No: Tenderness Edema: No Labs: Laboratory Results - last 24 hr 06/26/17 06/30/17 06/30/17 20:00 05:52 05:52 WBC 4.5 RBC 4.16 Hgb 12.6 Hct 36.7 MCV 88.2 MCH 30.4 MCHC 34.5 RDW 14.5 Plt Count 126 L MPV 8.4 Neutrophils % 74.3 Lymphocytes % 13.5 D Monocytes % 10.3 H Eosinophils % 1.9 D Basophils % 0.0 Platelet Comment Ovalocytes 1+ Zoe Cells 2+ Sodium Potassium Chloride Carbon Dioxide Anion Gap BUN Creatinine Creat Clearance w eGFR Random Glucose Calcium Magnesium Total Bilirubin AST ALT Alkaline Phosphatase LD Total 350 H Total Protein Albumin Urine Color Urine Appearance Urine pH Ur Specific [place] Urine Protein Urine Glucose (UA) Urine Ketones Urine Blood Urine Nitrite Urine Bilirubin Urine Urobilinogen Ur Leukocyte Esterase Urine WBC (Auto) Urine RBC (Auto) Ur Epithelial Cells Urine Bacteria Urine Mucus CSF Lyme Disease DNA Negative 06/30/17 06/30/17 07/01/17 15:50 23:30 05:20 WBC 5.0 RBC 4.03 Hgb 12.2 Hct 35.3 L MCV 87.8 MCH 30.3 MCHC 34.5 RDW 14.5 Plt Count 117 L MPV 8.2 Neutrophils % 76.3 Lymphocytes % 11.7 Monocytes % 9.7 Eosinophils % 2.2 Basophils % 0.1 D Platelet Comment Ovalocytes Zoe Cells Sodium 146 H Potassium 3.5 D Chloride 109 H Carbon Dioxide 23 Anion Gap 14 BUN 13 D Creatinine 0.8 Creat Clearance w eGFR Random Glucose 112 H Calcium 8.5 Magnesium Total Bilirubin AST ALT Alkaline Phosphatase LD Total Total Protein Albumin Urine Color Ltyellow Urine Appearance Clear Urine pH 7.0 Ur Specific [place] 1.015 Urine Protein 1+ H D Urine Glucose (UA) 1+ H Urine Ketones Negative Urine Blood Negative Urine Nitrite Negative Urine Bilirubin Negative Urine Urobilinogen Negative Ur Leukocyte Esterase Negative Urine WBC (Auto) <1 Urine RBC (Auto) 1 Ur Epithelial Cells Rare Urine Bacteria Rare Urine Mucus Rare CSF Lyme Disease DNA 07/01/17 07/01/17 05:20 05:20 WBC RBC Hgb Hct MCV MCH MCHC RDW Plt Count MPV Neutrophils % Lymphocytes % Monocytes % Eosinophils % Basophils % Platelet Comment Ovalocytes Zoe Cells Sodium 141 Potassium 3.2 L Chloride 109 H Carbon Dioxide 25 Anion Gap 7 L BUN 12 Creatinine 0.7 Creat Clearance w eGFR > 60 Random Glucose 117 H Calcium 8.0 L Magnesium 2.1 Cancelled Total Bilirubin 0.6 D AST 64 H D ALT 41 Alkaline Phosphatase 46 LD Total Total Protein 5.4 L Albumin 2.8 L Urine Color Urine Appearance Urine pH Ur Specific [place] Urine Protein Urine Glucose (UA) Urine Ketones Urine Blood Urine Nitrite Urine Bilirubin Urine Urobilinogen Ur Leukocyte Esterase Urine WBC (Auto) Urine RBC (Auto) Ur Epithelial Cells Urine Bacteria Urine Mucus CSF Lyme Disease DNA Problem List - Problems (1) Altered mental status Code(s): R41.82 - ALTERED MENTAL STATUS, UNSPECIFIED Qualifiers: Altered mental status type: delirium Qualified Code(s): R41.0 - Disorientation, unspecified (2) Fever Code(s): R50.9 - FEVER, UNSPECIFIED Qualifiers: Fever type: unspecified Qualified Code(s): R50.9 - Fever, unspecified (3) Rhabdomyolysis Code(s): M62.82 - RHABDOMYOLYSIS Qualifiers: Rhabdomyolysis type: non-traumatic Qualified Code(s): M62.82 - Rhabdomyolysis Assessment/Plan Improving Altered Mental Status Rhabdomyolysis (?) Seizures Acute Kidney Injury improved - continue ABX/Acyclovir per ID - Neuro work up in progress - IVF - Aspiration precautions - DVT prophylaxis - B12 Dr Montgomery
[2017-07-01 16:31] LABS: MYCOPLASMA PNEUMONIAE,IG G AB 194 U/mL (0-99); MYCOPLASMA PNEUMONIAE,IGM AB <770 U/mL (0-769)
--- NOTE | 2017-07-01 17:35 | PN ---
Progress Note (short form) - Note Progress Note: Renal follow up for LEX/Hypokalemia Pt seen and examined at the bedside awake but confused no fevers making urine Vital Signs Temperature 98.8 F 07/01/17 14:00 Pulse Rate 76 07/01/17 14:00 Respiratory Rate 19 07/01/17 14:00 Blood Pressure 176/95 07/01/17 14:00 O2 Sat by Pulse Oximetry (%) 99 06/30/17 21:00 Intake & Output 06/28/17 06/29/17 06/30/17 07/01/17 23:59 23:59 23:59 23:59 Intake Total 3250 2275 4070 875 Output Total 300 Balance 3250 2275 3770 875 Weight 99.79 kg NAD RRR mild crackles at lung bases soft NT no edema CBC, BMP 07/01/17 05:20 07/01/17 05:20 Current Medications Acetaminophen (Ofirmev Injection -) 1,000 mg IVPB Q6H PRN PRN Reason: FEVER Last Admin: 06/29/17 09:59 Dose: 1,000 mg Cyanocobalamin (Vitamin B12 Injection -) 1,000 mcg IM DAILY [facility] Last Admin: 07/01/17 10:32 Dose: 1,000 mcg Acyclovir 1,000 mg/ Dextrose 270 mls @ 270 mls/hr IVPB BID [facility] Last Admin: 07/01/17 10:25 Dose: 270 mls/hr Dextrose/Sodium Chloride (Dextrose 5%-Normal Saline+40 Meq Kcl -) 40 meq in 1, 000 mls @ 75 mls/hr IV ASDIR [facility] Last Admin: 07/01/17 15:00 Dose: 75 mls/hr Ampicillin Sodium 2 gm/ Sodium (Chloride) 100 mls @ 200 mls/hr IVPB Q4H-IV [facility] Last Admin: 07/01/17 17:26 Dose: 200 mls/hr Ceftriaxone Sodium 2 gm/ (Dextrose) 100 mls @ 200 mls/hr IVPB BID [facility] Last Admin: 07/01/17 10:25 Dose: 200 mls/hr 81 year old gentleman with significant PMHx who presented with AMS and fever and found to have LEX and Rhabdomyolysis with hypkalemia. #LEX Renal function now improved pt getting isotoic saline ? 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
[2017-07-01] MEDS: D5-1/2NS+40 MEQ KCL - 40 MEQ/1,000 ML INFUS.BAG IV SCH (17:50)
[2017-07-01] MEDS ORDERED: LORazepam 2 MG/ML SDV VIAL ONE (18:08)
[2017-07-01 20:28] LABS: ANION GAP 9 (8-16); BLOOD UREA NITROGEN 15 mg/dL (7-18); CALCIUM 8.1 mg/dL (8.5-10.1); CHLORIDE 110 mmol/L (98-107); CO2 23 mmol/L (21-32); CREATININE 0.8 mg/dL (0.7-1.3); GLUCOSE,RANDOM 93 mg/dL (74-106); POTASSIUM 3.6 mmol/L (3.5-5.1); SODIUM 142 mmol/L (136-145)
[2017-07-01] MEDS ORDERED: levETIRAcetam 500 MG/5 ML INJECTION VIAL IVPB STA (22:47)
--- NOTE | 2017-07-01 22:47 | PN ---
Progress Note (short form) - Note Progress Note: NEUROLOGY FOLLOW-UP: Events and MRI/ MR Angio images reviewed. Discussed with RN's who describe repeated episodes of R facial and Right arm twitching c/w Partial motor seizures. Day 4 of acyclovir, ampicillin and ceftriaxone. Afebrile. MRI shows Gyral changes in the Left MCA distribution c/w ischemic changes. PCR studies neg for HSV 1 and 2. EXAM: Lethargic but arousable. Follows rare commands. Few grunts. Blinks to threat all mcguire. Moves left arm > right. Right leg rests everted. Withdraws all 4's to pinch. Down going toes. IMP: L >> R cerebral dysfunction. Ischemia vs infection (Although normal CSF makes encephalitis less likely ). Partial motor seizures. SUGGEST: Load with Levetiracetam 500 mg IV now and q 12 hrs. Continue antibiotics/ antivirals. Thank you very much, Gume Cosme MD
[2017-07-02] MEDS: AMPICILLIN - 2 GM in SODIUM CHLORIDE 100 ML IVPB SCH ×6 (02:30→21:34)
[2017-07-02] MEDS ORDERED: PT OWN MED DRAWER 7, Y5N ONE ×3 (03:33→21:08)
[2017-07-02 05:57] LABS: BASO % 0.3 % (0-2.0); EOS % 3.8 % (0-4.5); HEMATOCRIT 32.1 % (35.4-49); HEMOGLOBIN 11.3 GM/dL (11.7-16.9); LYMPH % 13.5 % (8-40); MCH 30.9 pg (25.7-33.7); MCHC 35.1 g/dl (32.0-35.9); MEAN PLT VOLUME 8.6 fl (7.5-11.1); MONO % 12.3 % (3.8-10.2); NEUT % 70.1 % (42.8-82.8); PLATELET COUNT 122 K/MM3 (134-434); RBC 3.64 M/mm3 (4.00-5.60); RDW 14.6 % (11.9-15.9)
[2017-07-02 08:46] LABS: ANION GAP 8 (8-16); BLOOD UREA NITROGEN 17 mg/dL (7-18); CALCIUM 7.9 mg/dL (8.5-10.1); CHLORIDE 109 mmol/L (98-107); CO2 26 mmol/L (21-32); CREATININE 0.9 mg/dL (0.7-1.3); GLUCOSE,RANDOM 105 mg/dL (74-106); POTASSIUM 3.5 mmol/L (3.5-5.1); SODIUM 143 mmol/L (136-145)
[2017-07-02] MEDS: CEFTRIAXONE 2 GM in DEXTROSE 5%-WATER - 100 ML IVPB SCH ×2 (09:24→21:34)
[2017-07-02] MEDS: ACYCLOVIR INJECTION 1,000 MG in DEXTROSE 5%-WATER - 250 ML IVPB SCH ×2 (09:24→21:36)
[2017-07-02] MEDS: CYANOCOBALAMIN (VITAMIN B-12) 1000 MCG/1 ML VIAL IM SCH (09:28)
[2017-07-02] MEDS: levETIRAcetam 500 MG/5 ML INJECTION VIAL IVPB SCH ×2 (10:42→21:34)
--- NOTE | 2017-07-02 10:54 | PN ---
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 PCR studies neg for HSV 1 and 2. L >> R cerebral dysfunction. Ischemia vs infection (Although normal CSF makes encephalitis less likely ). Partial motor seizures. Selected Entries 07/01/17 07/01/17 07/01/17 02:00 06:00 14:00 Temperature 98.9 F 98.7 F 98.8 F 07/01/17 07/02/17 07/02/17 21:48 02:00 08:43 Temperature 97.8 F 98.4 F 98.5 F Laboratory Tests 07/01/17 07/02/17 05:20 05:25 WBC 5.0 5.0 Pt with significant changes in communication. wide awake and participated in 45 min speech tx session. yesterday pt was verbal, perseverative jargon with occasional intelligible chilean words produced. Frustrated, y/n confusion. today, pt is MUTE, with rare vegetative sounds elicited while laughing, or moaning. rare elicitation of 'NO' and nos. y/n responses accurate today. started communication board training with 25% accuracy only/4 way discrim imp; aphasia with left mca involvement. etiology uncertain. expression worse, with severe phonatory/oral/verbal apraxia. auditory comprehension better/. No longer frustrated, more euphoric. Pt receiving puree/nectar. Daughter feels he has more phlegm. I do not appreciate this but suggest change diet to puree/honey thick liquid. mbs when stable. Rehab placement.
[2017-07-02 13:54] LABS: MAGNESIUM 1.9 mg/dL (1.8-2.4); PHOSPHOROUS 2.8 mg/dL (2.5-4.9)
--- NOTE | 2017-07-02 13:54 | PN ---
Progress Note (short form) - Note Progress Note: Awake and alert. NAD. No acute events overnight. MRI: Gyral changes in the Left MCA distribution c/w ischemic changes. PCR studies neg for HSV 1 and 2. Intake & Output 06/29/17 06/30/17 07/01/17 07/02/17 23:59 23:59 23:59 23:59 Intake Total 2275 4070 2745 100 Output Total 300 200 Balance 2275 3770 2545 100 Weight 219 lb 15.988 oz Last Vital Signs Temp Pulse Resp BP Pulse Ox 98.5 F 59 L 21 129/69 96 07/02/17 08:43 07/02/17 08:43 07/02/17 08:43 07/02/17 08:43 07/02/17 08:43 Active Medications Acetaminophen (Ofirmev Injection -) 1,000 mg IVPB Q6H PRN PRN Reason: FEVER Last Admin: 06/29/17 09:59 Dose: 1,000 mg Cyanocobalamin (Vitamin B12 Injection -) 1,000 mcg IM DAILY [facility] Last Admin: 07/02/17 09:28 Dose: 1,000 mcg Acyclovir 1,000 mg/ Dextrose 270 mls @ 270 mls/hr IVPB BID [facility] Last Admin: 07/02/17 09:24 Dose: 270 mls/hr Ampicillin Sodium 2 gm/ Sodium (Chloride) 100 mls @ 200 mls/hr IVPB Q4H-IV [facility] Last Admin: 07/02/17 09:28 Dose: 200 mls/hr Ceftriaxone Sodium 2 gm/ (Dextrose) 100 mls @ 200 mls/hr IVPB BID [facility] Last Admin: 07/02/17 09:24 Dose: 200 mls/hr Dextrose/Sodium Chloride (D5-1/2ns+40 Meq Kcl -) 40 meq in 1,000 mls @ 75 mls/ hr IV ASDIR [facility] Last Admin: 07/01/17 17:50 Dose: 75 mls/hr Levetiracetam (Keppra Injection -) 500 mg IVPB BID [facility] Last Admin: 07/02/17 10:42 Dose: 500 mg Constitutional: Yes: Awake, NAD Eyes: Yes: Conjunctiva Clear, EOM Intact HENT: Yes: Atraumatic, Normocephalic Neck: Yes: Supple, Trachea Midline Cardiovascular: Yes: S1S2 Respiratory: Yes: Scattered rhonchi ...Clubbing: No Gastrointestinal: Yes: Normal Bowel Sounds, Soft. No: Tenderness Edema: No Labs: Laboratory Results - last 24 hr 06/26/17 06/28/17 07/01/17 20:00 11:15 19:25 WBC RBC Hgb Hct MCV MCH MCHC RDW Plt Count MPV Neutrophils % Lymphocytes % Monocytes % Eosinophils % Basophils % Sodium 142 Potassium 3.6 Chloride 110 H Carbon Dioxide 23 Anion Gap 9 BUN 15 D Creatinine 0.8 Random Glucose 93 D Calcium 8.1 L Phosphorus Magnesium Creatine Kinase CSF VDRL Non reactive M.pneumoniae IgG Titer 194 H M.pneumoniae IgM Titer <770 07/02/17 07/02/17 07/02/17 05:25 05:25 08:00 WBC 5.0 RBC 3.64 L Hgb 11.3 L Hct 32.1 L MCV 88.0 MCH 30.9 MCHC 35.1 RDW 14.6 Plt Count 122 L MPV 8.6 Neutrophils % 70.1 Lymphocytes % 13.5 Monocytes % 12.3 H Eosinophils % 3.8 Basophils % 0.3 Sodium Cancelled 143 Potassium Cancelled 3.5 Chloride Cancelled 109 H Carbon Dioxide Cancelled 26 Anion Gap Cancelled 8 BUN Cancelled 17 Creatinine Cancelled 0.9 Random Glucose Cancelled 105 Calcium Cancelled 7.9 L Phosphorus Cancelled Magnesium Cancelled Creatine Kinase Cancelled CSF VDRL M.pneumoniae IgG Titer M.pneumoniae IgM Titer Problem List - Problems (1) Altered mental status Code(s): R41.82 - ALTERED MENTAL STATUS, UNSPECIFIED Qualifiers: Altered mental status type: delirium Qualified Code(s): R41.0 - Disorientation, unspecified (2) Fever Code(s): R50.9 - FEVER, UNSPECIFIED Qualifiers: Fever type: unspecified Qualified Code(s): R50.9 - Fever, unspecified (3) Rhabdomyolysis Code(s): M62.82 - RHABDOMYOLYSIS Qualifiers: Rhabdomyolysis type: non-traumatic Qualified Code(s): M62.82 - Rhabdomyolysis Assessment/Plan Improving Altered Mental Status Rhabdomyolysis (?) Seizures Acute Kidney Injury improved Right cerebral dysfunction. Partial motor seizures. - continue ABX/Acyclovir per ID - Neuro work up in progress - IVF - Aspiration precautions - DVT prophylaxis - B12 - PO as tolerated - D/C planning Dr Montgomery
--- NOTE | 2017-07-02 15:07 | PN ---
Progress Note, Physician History of Present Illness: Awake and alert but aphasic Able to follow commands Temps remain down Afebrile - Current Medication List Current Medications: Active Medications Acetaminophen (Ofirmev Injection -) 1,000 mg IVPB Q6H PRN PRN Reason: FEVER Last Admin: 06/29/17 09:59 Dose: 1,000 mg Cyanocobalamin (Vitamin B12 Injection -) 1,000 mcg IM DAILY [facility] Last Admin: 07/02/17 09:28 Dose: 1,000 mcg Acyclovir 1,000 mg/ Dextrose 270 mls @ 270 mls/hr IVPB BID [facility] Last Admin: 07/02/17 09:24 Dose: 270 mls/hr Ampicillin Sodium 2 gm/ Sodium (Chloride) 100 mls @ 200 mls/hr IVPB Q4H-IV [facility] Last Admin: 07/02/17 09:28 Dose: 200 mls/hr Ceftriaxone Sodium 2 gm/ (Dextrose) 100 mls @ 200 mls/hr IVPB BID [facility] Last Admin: 07/02/17 09:24 Dose: 200 mls/hr Dextrose/Sodium Chloride (D5-1/2ns+40 Meq Kcl -) 40 meq in 1,000 mls @ 75 mls/ hr IV ASDIR [facility] Last Admin: 07/01/17 17:50 Dose: 75 mls/hr Levetiracetam (Keppra Injection -) 500 mg IVPB BID [facility] Last Admin: 07/02/17 10:42 Dose: 500 mg - Objective Vital Signs: Vital Signs Temperature 98.5 F 07/02/17 08:43 Pulse Rate 59 L 07/02/17 08:43 Respiratory Rate 21 07/02/17 08:43 Blood Pressure 129/69 07/02/17 08:43 O2 Sat by Pulse Oximetry (%) 96 07/02/17 08:43 Constitutional: Yes: No Distress Eyes: Yes: Conjunctiva Clear Cardiovascular: Yes: Regular Rate and Rhythm, S1, S2 Respiratory: Yes: Diminished Gastrointestinal: Yes: Normal Bowel Sounds, Soft. No: Tenderness Edema: LLE: 1+, RLE: 1+ Labs: CBC, BMP 07/02/17 05:25 07/02/17 08:00 Assessment/Plan Fever/ altered mental status improved ? CVA CSF c/s no growth CSF VZV PCR pending Continue empiric ceftriaxone/ ampicillin/ acyclovir
--- NOTE | 2017-07-02 16:41 | PN ---
Progress Note (short form) - Note Progress Note: Renal follow up for LEX/Hypokalemia Pt seen and examined at the bedside awake and alert but not talking family at the bedside s/p MRI yesterday making urine no fevers Vital Signs Temperature 98.6 F 07/02/17 15:24 Pulse Rate 62 07/02/17 15:24 Respiratory Rate 21 07/02/17 15:24 Blood Pressure 136/80 07/02/17 15:24 O2 Sat by Pulse Oximetry (%) 96 07/02/17 08:43 Intake & Output 06/29/17 06/30/17 07/01/17 07/02/17 23:59 23:59 23:59 23:59 Intake Total 2275 4070 2745 100 Output Total 300 200 Balance 2275 3770 2545 100 Weight 99.79 kg NAD RRR mild crackles at lung bases soft NT no edema CBC, BMP 07/02/17 05:25 07/02/17 08:00 Current Medications Acetaminophen (Ofirmev Injection -) 1,000 mg IVPB Q6H PRN PRN Reason: FEVER Last Admin: 06/29/17 09:59 Dose: 1,000 mg Cyanocobalamin (Vitamin B12 Injection -) 1,000 mcg IM DAILY [facility] Last Admin: 07/02/17 09:28 Dose: 1,000 mcg Acyclovir 1,000 mg/ Dextrose 270 mls @ 270 mls/hr IVPB BID [facility] Last Admin: 07/02/17 09:24 Dose: 270 mls/hr Ampicillin Sodium 2 gm/ Sodium (Chloride) 100 mls @ 200 mls/hr IVPB Q4H-IV [facility] Last Admin: 07/02/17 13:57 Dose: 200 mls/hr Ceftriaxone Sodium 2 gm/ (Dextrose) 100 mls @ 200 mls/hr IVPB BID [facility] Last Admin: 07/02/17 09:24 Dose: 200 mls/hr Dextrose/Sodium Chloride (D5-1/2ns+40 Meq Kcl -) 40 meq in 1,000 mls @ 75 mls/ hr IV ASDIR [facility] Last Admin: 07/01/17 17:50 Dose: 75 mls/hr Levetiracetam (Keppra Injection -) 500 mg IVPB BID [facility] Last Admin: 07/02/17 10:42 Dose: 500 mg 81 year old gentleman with significant PMHx who presented with AMS and fever and found to have LEX and Rhabdomyolysis with hypkalemia. #LEX Renal function now improved and stable will continue 1/2 NS for now as pt is on IV Acyclovir #Rhabodomyolysis CK is now 300 no longer at risk for renal injury #Hypokalemia will continue KCL with IVF oral diet as tolerated #Hypertension bp improved trend for now Thank you Omid Royal DO
[2017-07-02] MEDS: D5-1/2NS+40 MEQ KCL - 40 MEQ/1,000 ML INFUS.BAG IV SCH (17:14)
--- NOTE | 2017-07-02 23:32 | PN ---
Progress Note, Physician Chief Complaint: NOTES READ AND REVIEWED PATIENT CONFUSED IN BED APHASIA ACUTE - Current Medication List Current Medications: Active Medications Acetaminophen (Ofirmev Injection -) 1,000 mg IVPB Q6H PRN PRN Reason: FEVER Last Admin: 06/29/17 09:59 Dose: 1,000 mg Cyanocobalamin (Vitamin B12 Injection -) 1,000 mcg IM DAILY [facility] Last Admin: 07/02/17 09:28 Dose: 1,000 mcg Acyclovir 1,000 mg/ Dextrose 270 mls @ 270 mls/hr IVPB BID [facility] Last Admin: 07/02/17 21:36 Dose: 270 mls/hr Ampicillin Sodium 2 gm/ Sodium (Chloride) 100 mls @ 200 mls/hr IVPB Q4H-IV [facility] Last Admin: 07/02/17 21:34 Dose: 200 mls/hr Ceftriaxone Sodium 2 gm/ (Dextrose) 100 mls @ 200 mls/hr IVPB BID [facility] Last Admin: 07/02/17 21:34 Dose: 200 mls/hr Dextrose/Sodium Chloride (D5-1/2ns+40 Meq Kcl -) 40 meq in 1,000 mls @ 75 mls/ hr IV ASDIR [facility] Last Admin: 07/02/17 17:14 Dose: 75 mls/hr Levetiracetam (Keppra Injection -) 500 mg IVPB BID [facility] Last Admin: 07/02/17 21:34 Dose: 500 mg - Objective Vital Signs: Vital Signs Temperature 98.1 F 07/02/17 21:00 Pulse Rate 69 07/02/17 21:00 Respiratory Rate 19 07/02/17 21:00 Blood Pressure 138/87 07/02/17 21:00 O2 Sat by Pulse Oximetry (%) 95 07/02/17 21:00 Constitutional: Yes: Moderate Distress Eyes: Yes: WNL HENT: Yes: WNL Neck: Yes: WNL Cardiovascular: Yes: WNL Respiratory: Yes: WNL Gastrointestinal: Yes: WNL Musculoskeletal: Yes: Muscle Weakness Edema: No Peripheral Pulses WNL: Yes Integumentary: Yes: WNL Wound/Incision: Yes: Clean/Dry Neurological: Yes: Aphasia, Weakness ...Motor Strength: LLE, RLE Psychiatric: Yes: Other Labs: CBC, BMP 07/02/17 05:25 07/02/17 08:00 Problem List - Problems (1) Cerebellar dysfunction Code(s): G93.40 - ENCEPHALOPATHY, UNSPECIFIED (2) Partial motor seizures Code(s): G40.109 - LOCAL-REL SYMPTC EPI W SIMP PRT SEIZ,NOT NTRCT, W/O STAT EPI (3) Altered mental status Code(s): R41.82 - ALTERED MENTAL STATUS, UNSPECIFIED Qualifiers: Altered mental status type: delirium Qualified Code(s): R41.0 - Disorientation, unspecified (4) Muscle twitching Code(s): R25.3 - FASCICULATION Assessment/Plan AGREE WITH IV ABX AND ZOSTER TX WITH ACYCLOVIR CULTURES PENDING ID AND NEURO FOLLOW UP PT AND SPEECH THERAPY WILL NEED SNF
[2017-07-03 00:06] LABS: MUMPS AB IGG CSF < 5.0 AU/mL (<=10.9)
[2017-07-03] MEDS ORDERED: PT OWN MED DRAWER 7, Y5N ONE ×3 (00:34→21:27)
[2017-07-03] MEDS: AMPICILLIN - 2 GM in SODIUM CHLORIDE 100 ML IVPB SCH ×2 (01:02→06:15)
--- NOTE | 2017-07-03 08:47 | PN ---
Progress Note, Physician Chief Complaint: ID Day 7 in the hospital Still on Zovirax and Ceftriaxone Afebrile and much more alert though speech still difficult - Current Medication List Current Medications: Active Medications Acetaminophen (Ofirmev Injection -) 1,000 mg IVPB Q6H PRN PRN Reason: FEVER Last Admin: 06/29/17 09:59 Dose: 1,000 mg Cyanocobalamin (Vitamin B12 Injection -) 1,000 mcg IM DAILY [facility] Last Admin: 07/02/17 09:28 Dose: 1,000 mcg Acyclovir 1,000 mg/ Dextrose 270 mls @ 270 mls/hr IVPB BID [facility] Last Admin: 07/02/17 21:36 Dose: 270 mls/hr Ceftriaxone Sodium 2 gm/ (Dextrose) 100 mls @ 200 mls/hr IVPB BID [facility] Last Admin: 07/02/17 21:34 Dose: 200 mls/hr Dextrose/Sodium Chloride (D5-1/2ns+40 Meq Kcl -) 40 meq in 1,000 mls @ 75 mls/ hr IV ASDIR [facility] Last Admin: 07/02/17 17:14 Dose: 75 mls/hr Levetiracetam (Keppra Injection -) 500 mg IVPB BID [facility] Last Admin: 07/02/17 21:34 Dose: 500 mg - Objective Vital Signs: Vital Signs Temperature 97.7 F 07/03/17 07:45 Pulse Rate 62 07/03/17 07:45 Respiratory Rate 12 07/03/17 07:48 Blood Pressure 116/74 07/03/17 07:45 O2 Sat by Pulse Oximetry (%) 95 07/03/17 07:48 Neck: Yes: WNL, Supple Cardiovascular: Yes: S1, S2 Respiratory: Yes: WNL, Regular, CTA Bilaterally Gastrointestinal: Yes: WNL, Normal Bowel Sounds, Soft. No: Tenderness, Tenderness, Epigastrium Labs: CBC, BMP 07/02/17 05:25 07/02/17 08:00 Problem List - Problems (1) Altered mental status Code(s): R41.82 - ALTERED MENTAL STATUS, UNSPECIFIED Qualifiers: Altered mental status type: delirium Qualified Code(s): R41.0 - Disorientation, unspecified (2) Fever Code(s): R50.9 - FEVER, UNSPECIFIED Qualifiers: Fever type: unspecified Qualified Code(s): R50.9 - Fever, unspecified (3) Rhabdomyolysis Code(s): M62.82 - RHABDOMYOLYSIS Qualifiers: Rhabdomyolysis type: non-traumatic Qualified Code(s): M62.82 - Rhabdomyolysis Assessment/Plan Laboratory Tests 06/26/17 06/28/17 06/28/17 20:00 10:45 11:15 WBC Hct Plt Count BUN Creatinine HSV I DNA Quant (PCR) Negative HSV II DNA Quant (PCR) Negative M.pneumoniae IgG Titer 194 H M.pneumoniae IgM Titer <770 VZV DNA (PCR) Pending 07/02/17 07/02/17 05:25 08:00 WBC 5.0 Hct 32.1 L Plt Count 122 L BUN 17 Creatinine 0.9 HSV I DNA Quant (PCR) HSV II DNA Quant (PCR) M.pneumoniae IgG Titer M.pneumoniae IgM Titer VZV DNA (PCR) Assessment Fever and altered mental status feature of stroke HVZ considered HSV DNA neg Clinically improved so I would not repeat LP now Plan Stop ampicillin Ceftriaxone 1 more day Further guidance re Zovirax to follow Perry [facility]
[2017-07-03] MEDS: levETIRAcetam 500 MG/5 ML INJECTION VIAL IVPB SCH ×2 (09:40→21:11)
[2017-07-03] MEDS: ACYCLOVIR INJECTION 1,000 MG in DEXTROSE 5%-WATER - 250 ML IVPB SCH ×2 (09:40→21:14)
[2017-07-03] MEDS: CYANOCOBALAMIN (VITAMIN B-12) 1000 MCG/1 ML VIAL IM SCH (09:40)
[2017-07-03] MEDS: CEFTRIAXONE 2 GM in DEXTROSE 5%-WATER - 100 ML IVPB SCH ×2 (09:40→21:29)
--- NOTE | 2017-07-03 09:46 | DS ---
Physical Examination Vital Signs: Vital Signs Temperature 97.7 F 07/03/17 07:45 Pulse Rate 62 07/03/17 07:45 Respiratory Rate 12 07/03/17 07:48 Blood Pressure 116/74 07/03/17 07:45 O2 Sat by Pulse Oximetry (%) 95 07/03/17 07:48 NO INFECTIOUS SOURCE SO FAR FOUND ON CULTURES Findings/Remarks: PATIENT MORE ALERT STILL APHASIC WILL NEED INTENSE REHAB/PT/OT/SPEACH THERAPY I CALLED NELI RESENDEZFILI LEFT A MESSAGE Constitutional: Yes: Mild Distress Eyes: Yes: WNL HENT: Yes: Other Neck: Yes: WNL Cardiovascular: Yes: WNL Respiratory: Yes: WNL Gastrointestinal: Yes: WNL Renal/: Yes: WNL Musculoskeletal: Yes: Muscle Weakness Extremities: Yes: WNL Edema: No Peripheral Pulses WNL: Yes Integumentary: Yes: WNL Wound/Incision: Yes: Clean/Dry Neurological: Yes: Aphasia, Confusion, Weakness ...Motor Strength: LLE, RLE Psychiatric: Yes: Other Labs: CBC, BMP 07/02/17 05:25 07/02/17 08:00 Discharge Summary Reason For Visit: FEVER; ALTERED MENTAL SATUS Current Active Problems Abnormal blood electrolyte level (Acute) Altered mental status (Acute) B12 deficiency (Acute) Fever (Acute) Hypokalemia (Acute) Muscle twitching (Acute) Rhabdomyolysis (Acute) TOXIC METABOLIC ENCEPHALOPATHY Procedures: Principal: MRI/MRA BRAIN Hospital Course: ADMITTED FOR ACUTE APHASIA, CONFUSION, ACUTE MENTAL STATUS, WORKUP NEHATIVE FOR INFECTION SO FAR, LIKELY ISCHEMIA? NEURO WORKUP CONTINUED OUTPATIENT, NEEDS REHAB/PT/SPEECH THERAPY Condition: Stable - Instructions Diet, Activity, Other Instructions: PUREE, DYSPHAGIA SEE DR PADILLA AFTER DISCHARGED FROM REHAB/SNF Disposition: [facility] - Home Medications Comprehensive Discharge Medication List: Ambulatory Orders NK [No Known Home Medication] 06/26/17
--- NOTE | 2017-07-03 11:05 | PN ---
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 PCR studies neg for HSV 1 and 2. Pt continues to be mute, with rare voicing, just audible when laughing. Unable to copy letters using left, non dominant hand sec to Aphasia. Drops pencil with right hand. Pt now is spontaneously using gestures fairly well to communicate eg throwing me kissess, and thumbs up, etc. Suggest: [facility] for intensive speech tx
--- NOTE | 2017-07-03 12:25 | PN ---
Progress Note (short form) - Note Progress Note: Awake and alert. NAD. No acute events overnight. Intake & Output 06/30/17 07/01/17 07/02/17 07/03/17 23:59 23:59 23:59 23:59 Intake Total 4070 2745 670 950 Output Total 300 200 400 Balance 3770 2545 670 550 Weight 219 lb 15.988 oz Last Vital Signs Temp Pulse Resp BP Pulse Ox 97.7 F 62 12 116/74 95 07/03/17 07:45 07/03/17 07:45 07/03/17 07:48 07/03/17 07:45 07/03/17 07:48 Active Medications Acetaminophen (Ofirmev Injection -) 1,000 mg IVPB Q6H PRN PRN Reason: FEVER Last Admin: 06/29/17 09:59 Dose: 1,000 mg Cyanocobalamin (Vitamin B12 Injection -) 1,000 mcg IM DAILY [facility] Last Admin: 07/03/17 09:40 Dose: 1,000 mcg Acyclovir 1,000 mg/ Dextrose 270 mls @ 270 mls/hr IVPB BID [facility] Last Admin: 07/03/17 09:40 Dose: 270 mls/hr Ceftriaxone Sodium 2 gm/ (Dextrose) 100 mls @ 200 mls/hr IVPB BID [facility] Last Admin: 07/03/17 09:40 Dose: 200 mls/hr Dextrose/Sodium Chloride (D5-1/2ns+40 Meq Kcl -) 40 meq in 1,000 mls @ 75 mls/ hr IV ASDIR [facility] Last Admin: 07/02/17 17:14 Dose: 75 mls/hr Levetiracetam (Keppra Injection -) 500 mg IVPB BID [facility] Last Admin: 07/03/17 09:40 Dose: 500 mg Constitutional: Yes: Awake, NAD Eyes: Yes: Conjunctiva Clear, EOM Intact HENT: Yes: Atraumatic, Normocephalic Neck: Yes: Supple, Trachea Midline Cardiovascular: Yes: S1S2 Respiratory: Yes: Scattered rhonchi ...Clubbing: No Gastrointestinal: Yes: Normal Bowel Sounds, Soft. No: Tenderness Edema: No Labs: Laboratory Results - last 24 hr 07/02/17 07/03/17 08:00 08:30 Sodium 143 Potassium 3.5 Chloride 109 H Carbon Dioxide 26 Anion Gap 8 BUN 17 Creatinine 0.9 Random Glucose 105 Lactic Acid 0.8 Calcium 7.9 L Phosphorus 2.8 Magnesium 1.9 Creatine Kinase 303 Creatine Kinase Index 0.5 CK-MB (CK-2) 1.645 Problem List - Problems (1) Altered mental status Code(s): R41.82 - ALTERED MENTAL STATUS, UNSPECIFIED Qualifiers: Altered mental status type: delirium Qualified Code(s): R41.0 - Disorientation, unspecified (2) Fever Code(s): R50.9 - FEVER, UNSPECIFIED Qualifiers: Fever type: unspecified Qualified Code(s): R50.9 - Fever, unspecified (3) Rhabdomyolysis Code(s): M62.82 - RHABDOMYOLYSIS Qualifiers: Rhabdomyolysis type: non-traumatic Qualified Code(s): M62.82 - Rhabdomyolysis Assessment/Plan Improving Altered Mental Status Rhabdomyolysis (?) Seizures Acute Kidney Injury improved Right cerebral dysfunction. Partial motor seizures. - continue ABX/Acyclovir per ID - Aspiration precautions - DVT prophylaxis - PO as tolerated - D/C planning Dr Montgomery
--- NOTE | 2017-07-03 12:29 | PN ---
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
[2017-07-03] MEDS: D5-1/2NS+40 MEQ KCL - 40 MEQ/1,000 ML INFUS.BAG IV SCH (17:31)
--- NOTE | 2017-07-03 19:20 | PN ---
Progress Note (short form) - Note Progress Note: NEUROLOGY FOLLOW-UP Events reviewed and discussed with Dr. Amador and RN's. Seizures resolved on levetiracetam 500 mg BID after loading and patient quickly became more alert and cooperative. Still densely aphasic but walking with a walker and able to feed self in chair. Now on oral levetiracetam and valcyclovir with plans to transfer to rehab in AM. Exam: Awake, alert. comfortable in chair. Follows no commands. Non-fluent speech Full mcguire to threat. Mild right drift and decreased grasp. 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 SUGGEST: Stable for rehab transfer. Clopidogrel 75 mg PO qd. Levetiracetam 500 mg PO q 12 hrs. Thank you very much, Gume Cosme MD
[2017-07-04 04:22] VITALS: TEMP 98.4
[2017-07-04 07:28] VITALS: BP 142/85; PULSE 75
--- NOTE | 2017-07-04 07:32 | PN ---
Progress Note, Physician Chief Complaint: ID Neurology note reviewed Remains afebrile Ceftriaxone and IV Acyclovir - Current Medication List Current Medications: Active Medications Acetaminophen (Ofirmev Injection -) 1,000 mg IVPB Q6H PRN PRN Reason: FEVER Last Admin: 06/29/17 09:59 Dose: 1,000 mg Cyanocobalamin (Vitamin B12 Injection -) 1,000 mcg IM DAILY [facility] Last Admin: 07/03/17 09:40 Dose: 1,000 mcg Acyclovir 1,000 mg/ Dextrose 270 mls @ 270 mls/hr IVPB BID [facility] [place] Last Admin: 07/03/17 21:14 Dose: 270 mls/hr Ceftriaxone Sodium 2 gm/ (Dextrose) 100 mls @ 200 mls/hr IVPB BID [facility] [place] Last Admin: 07/03/17 21:29 Dose: 200 mls/hr Dextrose/Sodium Chloride (D5-1/2ns+40 Meq Kcl -) 40 meq in 1,000 mls @ 75 mls/ hr IV ASDIR [facility] [place] Last Admin: 07/03/17 17:31 Dose: 75 mls/hr Levetiracetam (Keppra Injection -) 500 mg IVPB BID [facility] [place] Last Admin: 07/03/17 21:11 Dose: 500 mg - Objective Vital Signs: Vital Signs Temperature 98.4 F 07/04/17 02:00 Pulse Rate 76 07/04/17 05:01 Respiratory Rate 18 07/04/17 05:01 Blood Pressure 145/88 07/04/17 05:01 O2 Sat by Pulse Oximetry (%) 98 07/03/17 20:45 Constitutional: Yes: Well Nourished, No Distress HENT: Yes: WNL, Atraumatic Neck: Yes: WNL, Supple Cardiovascular: Yes: S1, S2 Respiratory: Yes: WNL, Regular, CTA Bilaterally Gastrointestinal: Yes: WNL, Normal Bowel Sounds, Soft. No: Other Edema: No Labs: CBC, BMP 07/02/17 05:25 07/02/17 08:00 Problem List - Problems (1) Altered mental status Code(s): R41.82 - ALTERED MENTAL STATUS, UNSPECIFIED Qualifiers: Altered mental status type: delirium Qualified Code(s): R41.0 - Disorientation, unspecified (2) Fever Code(s): R50.9 - FEVER, UNSPECIFIED Qualifiers: Fever type: unspecified Qualified Code(s): R50.9 - Fever, unspecified (3) Rhabdomyolysis Code(s): M62.82 - RHABDOMYOLYSIS Qualifiers: Rhabdomyolysis type: non-traumatic Qualified Code(s): M62.82 - Rhabdomyolysis Assessment/Plan Microbiology 06/26/17 16:03 Urine - Urine Clean Catch Urine Culture - Final Morganella Morganii Laboratory Tests 06/26/17 06/26/17 06/26/17 20:00 20:00 21:00 WBC Hgb Hct Plt Count BUN Creatinine RPR Titer Nonreactive Lyme IgG Ab Interpret Negative Lyme IgM Ab Index Negative HSV I DNA Quant (PCR) Negative HSV II DNA Quant (PCR) Negative VZV DNA (PCR) 06/28/17 07/02/17 07/02/17 10:45 05:25 08:00 WBC 5.0 Hgb 11.3 L Hct 32.1 L Plt Count 122 L BUN 17 Creatinine 0.9 RPR Titer Lyme IgG Ab Interpret Lyme IgM Ab Index HSV I DNA Quant (PCR) HSV II DNA Quant (PCR) VZV DNA (PCR) Pending Laboratory Tests 07/02/17 08:00 BUN 17 Creatinine 0.9 Assessment Stroke and / or encephalitis Clinically improved though aphasia remains Plan Stop Ceftriaxone Oral Ceftin to treat Morganella UTI Continue Acyclovir until PCR HVZ negative Rehab transfer [facility]
--- NOTE | 2017-07-04 08:53 | PN ---
Progress Note, Physician History of Present Illness: Aphasia not cooperative - Current Medication List Current Medications: Active Medications Acetaminophen (Ofirmev Injection -) 1,000 mg IVPB Q6H PRN PRN Reason: FEVER Last Admin: 06/29/17 09:59 Dose: 1,000 mg Cyanocobalamin (Vitamin B12 Injection -) 1,000 mcg IM DAILY [facility] Last Admin: 07/03/17 09:40 Dose: 1,000 mcg Acyclovir 1,000 mg/ Dextrose 270 mls @ 270 mls/hr IVPB BID [facility] Last Admin: 07/03/17 21:14 Dose: 270 mls/hr Dextrose/Sodium Chloride (D5-1/2ns+40 Meq Kcl -) 40 meq in 1,000 mls @ 75 mls/ hr IV ASDIR [facility] Last Admin: 07/03/17 17:31 Dose: 75 mls/hr Levetiracetam (Keppra Injection -) 500 mg IVPB BID [facility] Last Admin: 07/03/17 21:11 Dose: 500 mg - Objective Vital Signs: Vital Signs Temperature 98.4 F 07/04/17 02:00 Pulse Rate 75 07/04/17 07:26 Respiratory Rate 18 07/04/17 07:28 Blood Pressure 142/85 07/04/17 07:26 O2 Sat by Pulse Oximetry (%) 98 07/04/17 07:28 Neck: Yes: Supple Cardiovascular: Yes: Regular Rate and Rhythm Respiratory: Yes: Regular, CTA Bilaterally Gastrointestinal: Yes: Normal Bowel Sounds, Soft Neurological: Yes: Aphasia, Confusion Labs: CBC, BMP 07/02/17 05:25 07/02/17 08:00 Problem List - Problems (1) B12 deficiency Assessment/Plan: replace Code(s): E53.8 - DEFICIENCY OF OTHER SPECIFIED B GROUP VITAMINS (2) Altered mental status Assessment/Plan: repeat ct nad neurology eval noted r/o CVA ? viral HSV neurochecks iv abx per ID Lumbar puncture done results noted MRI of brain, MRA - pending unclear eitology awaiting cultures broad abx coverage scd for dvt ppx replace b12 Code(s): R41.82 - ALTERED MENTAL STATUS, UNSPECIFIED Qualifiers: Altered mental status type: delirium Qualified Code(s): R41.0 - Disorientation, unspecified (3) Fever Code(s): R50.9 - FEVER, UNSPECIFIED Qualifiers: Fever type: unspecified Qualified Code(s): R50.9 - Fever, unspecified (4) Rhabdomyolysis Code(s): M62.82 - RHABDOMYOLYSIS Qualifiers: Rhabdomyolysis type: non-traumatic Qualified Code(s): M62.82 - Rhabdomyolysis (5) Muscle twitching Code(s): R25.3 - FASCICULATION (6) Abnormal blood electrolyte level Code(s): E87.8 - OTH DISORDERS OF ELECTROLYTE AND FLUID BALANCE, NEC (7) CVA (cerebral vascular accident) Assessment/Plan: pt neuro on board Code(s): I63.9 - CEREBRAL INFARCTION, UNSPECIFIED (8) Cerebellar dysfunction Assessment/Plan: as above Code(s): G93.40 - ENCEPHALOPATHY, UNSPECIFIED (9) Partial motor seizures Assessment/Plan: Orders 07/02/17 10:00 levETIRAcetam INJECTION [Keppra Injection -] 500 mg IVPB BID Code(s): G40.109 - LOCAL-REL SYMPTC EPI W SIMP PRT SEIZ,NOT NTRCT, W/O STAT EPI
--- NOTE | 2017-07-04 09:36 | PN ---
Progress Note, CREW CHIEF - Note Progress Note: Pt has been turned down by [facility]. [facility] has accepted him. New dx of CVA. I suspect it is Left MCA infact. Today, pt is no longer mute! Verbalizing but mostly unintelligible and perseverative, Social speech is improving,saying "i'm ok", y/n etc. He could not count in unisin today or state his name. Vocal quality functional. Using gesture fairly well, improving functional communiation.Swallowing reassessed.Overtly tolerating sips of water. Impaired right side oral sensation , with fair mastication of a cookie but with stasis in right buccal cavity and cookie hanging out of right side of his mouth without awareness. Right UE less function than left, droping things with right hand. Pt fed himself with assistance with left hand nand right hand. I called [facility] and explained his excellent prognosis and excellent Rehab candidacy. 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 Yesterday, he walked 25 feet with walker and sat in chair for hours. Social speech is beginning to be produced. She said that the [facility] reviewed the chart 3 times and they are not accepting him. Reviewed case with PMD. Consider [facility], if [facility] will not accept him. Consider [facility] Chopped, nectar thick liquid, Free water protocol between meals ( Mouth care followed by careful single sips of thin water)
[2017-07-04] MEDS: CYANOCOBALAMIN (VITAMIN B-12) 1000 MCG/1 ML VIAL IM SCH (09:49)
[2017-07-04] MEDS: levETIRAcetam 500 MG/5 ML INJECTION VIAL IVPB SCH (09:50)
[2017-07-04] MEDS: ACYCLOVIR INJECTION 1,000 MG in DEXTROSE 5%-WATER - 250 ML IVPB SCH (10:40)
== END 2017-07-04 13:51 | DRG 64 ==
LOC: JER 12:09 → JERBED 17:41 → J2W 06-27 15:02
PROVIDERS: ADMIT Internal Medicine; ATTEND Family Medicine
PROC: 009U3ZX Drainage of Spinal Canal, Percutaneous Approach, Diagnostic (ICD-10-PCS; principal; 2017-07-01)
DX: I63.9 Cerebral infarction, unspecified (principal); G93.41 Metabolic encephalopathy; M62.82 Rhabdomyolysis; N17.9 Acute kidney failure, unspecified; N39.0 Urinary tract infection, site not specified; G81.91 Hemiplegia, unspecified affecting right dominant side; R47.01 Aphasia; R31.9 Hematuria, unspecified; E53.8 Deficiency of other specified B group vitamins; R50.9 Fever, unspecified; E87.6 Hypokalemia; I10 Essential (primary) hypertension; R25.3 Fasciculation
CPT/HCPCS: 36415; 36600; 70450-TC; 70544-TC; 70547-TC; 70551-TC; 71045-TC-FY; 71250-TC; 74176-TC; 80048; 80053; 80061; 80307; 81003; 81015; 82140; 82550; 82553; 82607; 82746; 82803; 82945; 82962; 83036; 83605; 83615; 83721; 83735; 84100; 84157; 84443; 84484; 85025; 85651; 86140; 86592; 86593; 86617; 86694; 86735; 86738; 86765; 86787; 86788; 86789; 87040; 87070; 87086; 87186; 87205; 87476; 87529; 87798; 87804; 87899; 89050; 93005; 93010; 93306-TC; 95816; 97116-GP; 97161-GP; 99285-25